=== PATIENT | male | born 1955 | race Caucasian/White ===

== ENCOUNTER → 2020-09-12 | Outpatient (CLI) | payer MEDICARE ==
[~2020-09-12] MED LIST: CELE50CA PO; IBP600T1 PO; OXYC-12 PO
--- NOTE | 2020-09-12 13:20 | Diagnostic Imaging Report ---
PROCEDURE: CT urinary tract, rule out kidney stone. TECHNIQUE: Multiple contiguous axial images were obtained through the abdomen and pelvis without the use of intravenous contrast. Auto Exposure Controls were utilized during the CT exam to meet ALARA standards for radiation dose reduction. INDICATION: Right flank pain and hematuria. COMPARISON: No previous study is available at this time for comparison. FINDINGS: The unenhanced images of the liver and spleen reveal no focal lesion. Note is made of calcification in the lung bases, possibly related to granulomatous residual or other insult. There is no evidence of gallbladder or biliary ductal dilatation. No pancreatic, adrenal gland, or splenic abnormality is seen. There are multiple low-density nodules in the renal cortices bilaterally measuring up to approximately 1.5 cm in size. There is also dense calcification within the mid and lower pole calyces of the left kidney. Additional scattered right renal calyceal calcifications are identified; however, there is no evidence of hydronephrosis. No ureteric stone or dilatation is identified. The unopacified images of the bladder reveal no calculus. There is no evidence of free fluid within the abdomen or pelvis. There is evidence of old pelvic trauma with fractures, particularly on the left, with fusion across the right sacroiliac joint. IMPRESSION: Bilateral nephrolithiasis; however, no obstructive uropathy is identified. Old pelvic trauma, particularly on the left, with fusion across the right sacroiliac joint. Dictated by: Dictated on workstation # [id number]
== END ==
LOC: RAD 13:15
PROVIDERS: ATTEND Nurse Practitioner Family
DX: N20.0 Calculus of kidney (principal)
CPT/HCPCS: 74176

== ENCOUNTER 2020-09-20 05:36 | Outpatient (CLI) | payer MEDICARE ==
[~2020-09-20] VITALS: Ht 177.8 cm; Wt 74.9 kg
[2020-09-20] MEDS ORDERED: AMLO-250 PO (13:44)
[2020-09-20] MEDS ORDERED: FLUT9.9S NS (13:44)
[2020-09-20] MEDS ORDERED: OMEP40CA6 PO (13:44)
[2020-09-20] MEDS ORDERED: ALLO300T2 PO (13:44)
[2020-09-20] MEDS ORDERED: TIMO5DRO27 OP (13:44)
[2020-09-20] MEDS ORDERED: LISI20TA26 PO (13:44)
[2020-09-20] MEDS ORDERED: ATOR20TA66 PO (13:44)
== END 2020-09-20 13:51 | disposition home or self-care (01) ==
LOC: PREOP 05:36
PROVIDERS: ATTEND Urology
DX: Z01.818 Encounter for other preprocedural examination (principal)

== ENCOUNTER 2020-09-27 07:49 | Day surgery (SDC) | payer MEDICARE ==
[~2020-09-27] VITALS: Ht 177.8 cm; Wt 74.9 kg
[2020-09-27] VITALS (10 sets, daily range): BP systolic 96–131; BP diastolic 59–83
[~2020-09-27 07:49] MED LIST changes: +ALLO300T2 PO; +AMLO-250 PO; +ATOR20TA66 PO; +FLUT9.9S NS; +LISI20TA26 PO; +OMEP40CA6 PO; +TIMO5DRO27 OP
--- NOTE | 2020-09-27 07:59 | Progress Note-Pre Operative ---
Pre-Operative Progress Note H&P Reviewed The H&P was reviewed, patient examined and no changes noted. Date Seen by Provider: Sep 27, 2020 Time Seen by Provider: 07:59 Date H&P Reviewed: Sep 27, 2020 Time H&P Reviewed: 07:59 Pre-Operative Diagnosis: LT RENAL STONE REYES STOVER MD Sep 27, 2020 07:59
[2020-09-27] MEDS ORDERED: ceFAZolin INJECTION 1,000 MG in WATER (STERILE) FOR INJECTION 10 ML IV ONE (08:00)
[2020-09-27] MEDS ORDERED: LACTATED RINGERS 1,000 ML IV PRN (08:00)
--- NOTE | 2020-09-27 08:39 | Diagnostic Imaging Report ---
Supine abdomen at 819 hours. INDICATION: Preop ESWL, nephrolithiasis. FINDINGS: The CT abdomen/pelvis exam of 09/12/2020 noted bilateral nephrolithiasis. On this exam, nonobstructive calculi within the kidney seen previously are again evident and not significantly changed. There is much greater involvement of the left kidney by nephrolithiasis than the right. There is still no sign of obstructive calculus along the paths of the ureters. There is no abnormality of the abdomen identified otherwise. IMPRESSION: 1. There is bilateral nephrolithiasis. 2. ESWL is pending. Dictated by: Dictated on workstation # [id number]
[2020-09-27] MEDS ORDERED: MV-M1TAB37 PO (10:30)
[2020-09-27] MEDS ORDERED: KETOROLAC 30 MG/ML VIAL ONE (10:39)
[2020-09-27] MEDS ORDERED: proPOfol 200 MG/20 ML (DIPRIVAN) VIAL IV ONE (10:39)
[2020-09-27] MEDS ORDERED: FUROSEMIDE 40 MG/4 ML INJ (LASIX) ONE (10:39)
[2020-09-27] MEDS ORDERED: LIDOCAINE PF 2% 5 ML (XYLOCAINE) VIAL ONE (10:39)
[2020-09-27] MEDS ORDERED: ONDANSETRON 4 MG/2 ML (SDV) Z0FRAN ONE (10:39)
[2020-09-27] MEDS ORDERED: MIDAZOLAM 2 MG/2 ML (VERSED) VIAL ONE (10:40)
[2020-09-27] MEDS ORDERED: fentaNYL INJ 100 MCG/2 ML AMP ONE (10:40)
--- NOTE | 2020-09-27 10:59 | Progress Note-Post Operative ---
Post-Operative Progess Note Surgeon (s)/Vp Construction (s) Surgeon REYES STOVER MD Vp Construction: NONE Pre-Operative Diagnosis LT RENAL STONE Post-Operative Diagnosis SAME Procedure & Operative Findings Date of Procedure 09/27/20 Procedure Performed/Findings LT ESWL Anesthesia Type GENERAL Estimated Blood Loss Estimated blood loss (mL): NONE Specimens/Packing Specimens Removed NONE Packing: NONE REYES STOVER MD Sep 27, 2020 10:59
--- NOTE | 2020-09-27 11:02 | Discharge Inst-Urology ---
Discharge Inst-Urology Reconcile Patient Problems Problems Reviewed?: Yes Final Diagnosis LT RENAL STONES Patient Instructions/Follow Up Plan/Assessment/Instructions Please make appointment to been seen in office Tuesday 10/10, KUB prior to it. KUB on way home Post eswl instructions Increase oral fluids for 48 hours and then as needed. Diet and Activity as tolerated. If questions or concerns contact your physician Or seek help at emergency department. REYES STOVER MD Sep 27, 2020 11:02
[2020-09-27] MEDS ORDERED: SEVOFLURANE (ULTANE) 15 ML INHAL SOLN ONE (11:43)
[2020-09-27] MEDS ORDERED: MEPERIDINE (DEMEROL) INJ 50 MG/ML IVP ONE (11:45)
[2020-09-27] MEDS ORDERED: ONDANSETRON 4 MG/2 ML (SDV) Z0FRAN IVP PRN (11:45)
[2020-09-27] MEDS ORDERED: morphine INJ 10 MG/ML 1ML (SYR OR VIAL) IVP ONE (11:45)
--- NOTE | 2020-09-27 12:42 | Anesthesia-General Post-Op ---
General Patient Condition Mental Status/LOC: Same as Preop Cardiovascular: Satisfactory Nausea/Vomiting: Absent Respiratory: Satisfactory Pain: Controlled Complications: Absent Post Op Complications Complications None Follow Up Care/Instructions Patient Instructions None needed. Anesthesia/Patient Condition Patient Condition Patient is doing well, no complaints, stable vital signs, no apparent adverse anesthesia problems. No complications reported per nursing. REYNALDO GIFFORD CRNA Sep 27, 2020 12:42
[2020-09-27] MEDS ORDERED: KETO10TA PO (12:54)
[2020-09-27] MEDS ORDERED: TMSL.4C PO (12:54)
[2020-09-27] MEDS ORDERED: NITR-65 PO (12:54)
--- NOTE | 2020-09-27 14:02 | OPERATIVE REPORT ---
DATE OF SERVICE: 09/27/2020 PREOPERATIVE DIAGNOSIS: Left renal stones. POSTOPERATIVE DIAGNOSIS: Left renal stones. OPERATION PERFORMED: Left ESWL. SURGEON: Ilya Stover MD ANESTHESIA: General. COMPLICATIONS: None. DESCRIPTION OF PROCEDURE: Under satisfactory general anesthesia, the patient supine on the ESWL table, the big stone fragment was localized. Shocks were delivered at kV of 6. Total of 3000 shocks were delivered. There was good fragmentation of the stones, probably needing a second ESWL in 2 weeks. The patient received 40 mg of Lasix and 30 mg of Toradol IV at the end of the procedure. He tolerated the procedure and anesthesia well and was sent to recovery room in stable condition. Job ID: [id number] DocumentID: [id number] Dictated Date: 09/27/2020 11:29:32 Instrument Maker And Repairer Date: 09/27/2020 14:02:25 Dictated By: ILYA STOVER MD
== END 2020-09-27 13:20 | disposition home or self-care (01) ==
LOC: SDC 07:49
PROVIDERS: ATTEND Urology
DX: N20.0 Calculus of kidney (principal); I10 Essential (primary) hypertension; K21.9 Gastro-esophageal reflux disease without esophagitis; Z79.899 Other long term (current) drug therapy
CPT/HCPCS: 74018; 87081

== ENCOUNTER 2020-10-04 05:33 | Outpatient (CLI) | payer MEDICARE ==
[~2020-10-04 05:33] MED LIST changes: +KETO10TA PO; +MV-M1TAB37 PO; +NITR-65 PO; +TMSL.4C PO
[2020-10-11] MEDS ORDERED: TMSL.4C PO ×2 (12:03)
[2020-10-11] MEDS ORDERED: KETO10TA PO ×2 (12:03)
[2020-10-11] MEDS ORDERED: NITR-65 PO ×2 (12:03)
== END 2020-10-10 14:55 | disposition home or self-care (01) ==
LOC: PREOP 05:33
PROVIDERS: ATTEND Urology
DX: Z01.818 Encounter for other preprocedural examination (principal)

== ENCOUNTER → 2020-10-07 | Outpatient (CLI) | payer MEDICARE ==
--- NOTE | 2020-10-07 10:48 | Diagnostic Imaging Report ---
Supine abdomen at 1007h. INDICATION: Nephrolithiasis The previous exam of 09/27/2020 noted a number of nonobstructive calculi overlying the left kidney as well as a few calcific densities overlying the right kidney. Those findings are again evident and do not seem to have changed significantly. No new abnormality has developed otherwise. IMPRESSION: The bilateral nephrolithiasis seen previously is again evident and no different. The overall appearance of the abdomen and pelvis is otherwise stable. Dictated by: Dictated on workstation # [id number]
== END ==
LOC: RAD 09:33
PROVIDERS: ATTEND Urology
DX: N20.0 Calculus of kidney (principal)
CPT/HCPCS: 74018

== ENCOUNTER 2020-10-11 06:44 | Day surgery (SDC) | payer MEDICARE ==
[2020-10-11] VITALS (10 sets, daily range): BP systolic 107–134; BP diastolic 67–86
[~2020-10-11] VITALS: Ht 177.8 cm; Wt 74.9 kg
[2020-10-11] MEDS ORDERED: cefTRIAXone 1,000 MG in WATER (STERILE) FOR INJECTION 10 ML IV ONE (07:15)
--- NOTE | 2020-10-11 07:59 | Progress Note-Pre Operative ---
Pre-Operative Progress Note H&P Reviewed The H&P was reviewed, patient examined and no changes noted. Date Seen by Provider: Oct 11, 2020 Time Seen by Provider: 07:59 Date H&P Reviewed: Oct 11, 2020 Time H&P Reviewed: 07:59 Pre-Operative Diagnosis: LT RENAL STONES REYES STOVER MD Oct 11, 2020 07:59
[2020-10-11] MEDS: LACTATED RINGERS 1,000 ML IV PRN ×2 (08:04→10:25)
--- NOTE | 2020-10-11 08:31 | Progress Note-Post Operative ---
Post-Operative Progess Note Surgeon (s)/Shuttle Route Vehicle Operator (s) Surgeon REYES STOVER MD Shuttle Route Vehicle Operator: NONE Pre-Operative Diagnosis LT RENAL STONES Post-Operative Diagnosis SAME Procedure & Operative Findings Date of Procedure 10/11/20 Procedure Performed/Findings LT ESWL Anesthesia Type GENERAL Estimated Blood Loss Estimated blood loss (mL): NONE Specimens/Packing Specimens Removed NONE Packing: NONE REYES STOVER MD Oct 11, 2020 08:31
--- NOTE | 2020-10-11 08:33 | Discharge Inst-Urology ---
Discharge Inst-Urology Reconcile Patient Problems Problems Reviewed?: Yes Final Diagnosis LT RENAL STONES Patient Instructions/Follow Up Plan/Assessment/Instructions Please make appointment to been seen in office in 2 weeks. KUB prior to it KUB on way home Post ESWL instructions Increase oral fluids for 48 hours and then as needed. Diet and Activity as tolerated. If questions or concerns contact your physician Or seek help at emergency department. REYES STOVER MD Oct 11, 2020 08:33
--- NOTE | 2020-10-11 08:40 | Diagnostic Imaging Report ---
Indication: Nephrolithiasis. Compared with exam 10/07/2020 Findings: There are multiple left renal calculi unchanged radiographically. There is probable faint calculi at the mid to upper pole of the right kidney unchanged. Pelvic calcifications believe phleboliths unchanged however on the left could obscure a distal ureteral stone. Some contrast was within left colonic diverticuli chronic. Impression: Nephrolithiasis greater left, radiographically unchanged. Dictated by: Dictated on workstation # [id number]
[2020-10-11] MEDS ORDERED: fentaNYL INJ 100 MCG/2 ML AMP ONE (09:41)
[2020-10-11] MEDS ORDERED: ONDANSETRON 4 MG/2 ML (SDV) Z0FRAN ONE (09:41)
[2020-10-11] MEDS ORDERED: MIDAZOLAM 2 MG/2 ML (VERSED) VIAL ONE (09:41)
[2020-10-11] MEDS ORDERED: proPOfol 200 MG/20 ML (DIPRIVAN) VIAL IV ONE (09:41)
[2020-10-11] MEDS ORDERED: LIDOCAINE PF 2% 5 ML (XYLOCAINE) VIAL ONE (09:41)
[2020-10-11] MEDS ORDERED: KETOROLAC 30 MG/ML VIAL ONE (10:00)
[2020-10-11] MEDS ORDERED: FUROSEMIDE 40 MG/4 ML INJ (LASIX) ONE (10:00)
[2020-10-11] MEDS ORDERED: PHENYLEPHRINE 100 MCG/ML 10 ML (ANESTHESIA) SYR ONE (10:05)
[2020-10-11] MEDS ORDERED: ONDANSETRON 4 MG/2 ML (SDV) Z0FRAN IVP PRN (10:45)
[2020-10-11] MEDS ORDERED: KETO10TA PO ×2 (12:03)
[2020-10-11] MEDS ORDERED: NITR-65 PO ×2 (12:03)
[2020-10-11] MEDS ORDERED: TMSL.4C PO ×2 (12:03)
--- NOTE | 2020-10-11 12:41 | Diagnostic Imaging Report ---
INDICATION: Postop kidney stones COMPARISON: 10/11/20 FINDINGS: Single view the abdomen demonstrates kidney stones in the left kidney. There is no unexpected radiopaque foreign body. IMPRESSION: No foreign body seen. Dictated by: Dictated on workstation # [id number]
--- NOTE | 2020-10-11 13:51 | OPERATIVE REPORT ---
DATE OF SERVICE: 10/11/2020 PREOPERATIVE DIAGNOSIS: Left renal stones. POSTOPERATIVE DIAGNOSIS: Left renal stones. OPERATION PERFORMED: Left ESWL. SURGEON: Ilya Stover MD. ANESTHESIA: General. COMPLICATIONS: None. DESCRIPTION OF PROCEDURE: Under satisfactory general anesthesia, the patient in supine position on the ESWL table, the left renal stones were localized. Shocks were delivered at a kV of 6, a total of 3000 shocks fragmented well the stones. The patient received 40 mg of Lasix and 30 mg of Toradol IV at the end of the procedure. He tolerated the procedure and anesthesia well and was sent to recovery room in a stable condition. Job ID: [id number] DocumentID: [id number] Dictated Date: 10/11/2020 10:17:06 Software Test Developer Date: 10/11/2020 13:50:18 Dictated By: ILYA STOVER MD
--- NOTE | 2020-10-11 13:59 | Anesthesia-General Post-Op ---
General Patient Condition Mental Status/LOC: Same as Preop Cardiovascular: Satisfactory Nausea/Vomiting: Absent Respiratory: Satisfactory Pain: Controlled Complications: Absent Post Op Complications Complications None Follow Up Care/Instructions Patient Instructions None needed. Anesthesia/Patient Condition Patient Condition Patient is doing well, no complaints, stable vital signs, no apparent adverse anesthesia problems. No complications reported per nursing. D/C home per [facility] [place] Criteria: Yes MCKINLEY MCDONOUGH CRNA Oct 11, 2020 13:59
== END 2020-10-11 12:53 | disposition home or self-care (01) ==
LOC: SDC 06:44
PROVIDERS: ATTEND Urology
DX: N20.0 Calculus of kidney (principal); I10 Essential (primary) hypertension; K21.9 Gastro-esophageal reflux disease without esophagitis; Z88.5 Allergy status to narcotic agent; K44.9 Diaphragmatic hernia without obstruction or gangrene; K59.00 Constipation, unspecified; K29.70 Gastritis, unspecified, without bleeding; M10.9 Gout, unspecified; Z86.010 Personal history of colon polyps; Z79.899 Other long term (current) drug therapy; Z11.2 Encounter for screening for other bacterial diseases
CPT/HCPCS: 74018; 87081

== ENCOUNTER → 2020-10-25 | Outpatient (CLI) | payer MEDICARE ==
--- NOTE | 2020-10-25 16:35 | Diagnostic Imaging Report ---
INDICATION: Ureteral stone, status post lithotripsy. TIME OF EXAM: 2:52 PM COMPARISON is made with prior radiograph from 10/11/2020. Numerous calculi overlie the upper mid and lower pole of the left kidney. There are also calculi overlying the right renal shadow. There appears to be some fragmentation of a staghorn calculus in the lower pole left kidney. No definite calculi along the course of the ureters are seen. The bowel gas pattern is unremarkable. IMPRESSION: Bilateral nephrolithiasis. There is fragmentation of a staghorn calculus in the lower pole left kidney. Dictated by: Dictated on workstation # [id number]
== END ==
LOC: RAD 14:32
PROVIDERS: ATTEND Urology
DX: N20.0 Calculus of kidney (principal); Z98.890 Other specified postprocedural states
CPT/HCPCS: 74018

== ENCOUNTER → 2020-11-07 | Outpatient (CLI) | payer MEDICARE ==
--- NOTE | 2020-11-07 16:09 | Diagnostic Imaging Report ---
INDICATION: Nephrolithiasis. COMPARISON: 10/25/2020. FINDINGS: There are somewhat amorphous calcifications overlying the left kidney. There are also some questionable stones in the right kidney. There are degenerative changes in the spine. IMPRESSION: Relatively unchanged bilateral nephrolithiasis, left greater than right. Dictated by: Dictated on workstation # [id number]
== END ==
LOC: RAD 14:17
PROVIDERS: ATTEND Urology
DX: N20.0 Calculus of kidney (principal); Z98.890 Other specified postprocedural states
CPT/HCPCS: 74018

== ENCOUNTER 2021-12-10 10:09 | Inpatient (IN) | payer MEDICARE ==
[~2021-12-10] VITALS: Ht 167.7 cm; Wt 73.1 kg
--- NOTE | 2021-12-10 10:59 | ED GI ---
General Chief Complaint: Abdominal/GI Problems Stated Complaint: SYNCOPE Nursing Triage Note: PT TO RM 3 [facility] W C/O N/V/D SX THIS AM. PT REPORTS HE PASSED OUT WHILE ON TOILET THIS AM, UNSURE IF HE HIT HIS HEAD. TENDERNESS ON UPPER BACK, DENIES NECK PAIN. PT DENIES SOA, SPO2 87% RA UPON ARRIVAL. PT A&OX4. Source of Information: Patient, Family () Exam Limitations: No Limitations History of Present Illness Date Seen by Provider: Dec 10, 2021 Time Seen by Provider: 10:40 Initial Comments Patient is a 66-year-old male who presents to the emergency room today with a chief complaint of nausea vomiting and diarrhea. His states that he had a syncopal episode in the bathroom this morning. Patient states that he has been fighting an episode of gout, he took some gout medication for treatment last night. States he slept well but this morning had 4 episodes of diarrhea that were nonblack nonbloody. He was in the bathroom having an episode of nausea and vomiting and could not really get up from the toilet. This is the point at which his thinks that she heard him fall back onto the toilet. He was actually coming off the toilet when she went in and was poorly responsive for 2 or 3 minutes. She states she was able to arouse him and walk behind him into the living room. He complains of a little epigastric discomfort. He has chronic neck pain. He has a history of hypertension, hypercholesterolemia. Not a diabetic. He denies any recent illnesses has been feeling well until this morning. He has never been a smoker. He does not wear oxygen at home or use breathing treatments. 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 On my arrival into the room Mr. Prado appears to feel unwell. He is slightly pale, not tachycardic. Oxygen saturations are 85% on 2 L per nasal cannula. Good plethysmography. Blood pressure is low at 85 systolic. This has been consistent since being hooked up to telemetry. I increased his oxygen up to 5 L per nasal cannula which kept him at 85 to 87%. I then switched him to a simple facemask at 10 L. He is exhibiting no increased work of breathing or respiratory distress but does have a significant amount of crackles to the right lung iglesias. Suspicion for aspiration pneumonia. All other review of systems reviewed and negative except as stated Timing/Duration: 1-3 Hours Severity/Quality: Severe Associated Symptoms: Nausea/Vomiting, Syncope, Weakness Allergies and Home Medications Allergies Coded Allergies: codeine (Unverified Adverse Reaction, Mild, HEADACHE, 09/27/20) Patient Home Medication List Home Medication List Reviewed: Yes Allopurinol (Allopurinol) 300 Mg Tablet, 200 MG PO DAILY Prescribed by: BILLY SÁNCHEZ on 12/10/21 1445 Last Action: New Order Amlodipine Besylate (Amlodipine Besylate) 5 Mg Tablet, 5 MG PO DAILY, (Reported) Entered as Reported by: JOSEFINA HERRERA on 09/20/201343 Last Action: Reviewed Atorvastatin Calcium (Atorvastatin Calcium) 20 Mg Tablet, 20 MG PO DAILY, (Reported) Entered as Reported by: JOSEFINA HERRERA on 09/20/201343 Last Action: Reviewed Duloxetine HCl (Duloxetine HCl) 60 Mg Capsule.dr, 60 MG PO DAILY Prescribed by: BILLY SÁNCHEZ on 12/10/21 1447 Last Action: New Order Lisinopril (Lisinopril) 20 Mg Tablet, 20 MG PO DAILY, (Reported) Entered as Reported by: JOSEFINA HERRERA on 09/20/201343 Last Action: Reviewed Omeprazole (Omeprazole) 40 Mg Capsule.dr, 40 MG PO DAILY, (Reported) Entered as Reported by: JOSEFINA HERRERA on 09/20/201343 Last Action: Reviewed Timolol (Betimol) 5 Ml Drops, 5 ML OP DAILY, (Reported) Entered as Reported by: JOSEFINA HERRERA on 09/20/201343 Last Action: Reviewed Discontinued Medications Fluticasone Propionate (Flonase Allergy Relief) 9.9 Ml [place].susp, 2 SPRAY NS DAILY, (Reported) Discontinued Reason: No Longer Taking Entered as Reported by: JOSEFINA HERRERA on 09/20/201343 Last Action: Discontinued Ketorolac Tromethamine (Ketorolac Tromethamine) 10 Mg Tablet, 10 MG PO Q6H Discontinued Reason: No Longer Taking Prescribed by: DANITA CHILDERS on 10/11/20 1203 Last Action: Discontinued Mv-Mn/FA/Lycopene/Lut/Hb#178 (Andrew Multi For Men Tablet) 1 Each Tablet, 1 EACH PO DAILY, (Reported) Discontinued Reason: No Longer Taking Entered as Reported by: ALEJANDRA MILLIGAN on 09/27/20 1030 Last Action: Discontinued Nitrofurantoin Monohyd/M-Cryst (Macrobid 100 mg Capsule) 100 Mg Capsule, 1 TAB PO BID Discontinued Reason: No Longer Taking Prescribed by: DANITA CHILDERS on 10/11/20 1203 Last Action: Discontinued Tamsulosin HCl (Flomax) 0.4 Mg Cap, 0.4 MG PO DAILY Discontinued Reason: No Longer Taking Prescribed by: ALEJANDRA MILLIGAN on 09/27/20 1254 Last Action: Discontinued Tamsulosin HCl (Flomax) 0.4 Mg Cap, 0.4 MG PO DAILY Discontinued Reason: No Longer Taking Prescribed by: DANITA CHILDERS on 10/11/20 120 Last Action: Discontinued Review of Systems Review of Systems Constitutional: see HPI, malaise, weakness EENTM: No Symptoms Reported Respiratory: Cough ("tickle" in his throat the last 2-3 days) Cardiovascular: No Symptoms Reported Gastrointestinal: Diarrhea, Nausea, Vomiting Genitourinary: No Symptoms Reported Musculoskeletal: neck pain (chronic (has steroid injections in the neck)) Psychiatric/Neurological: No Symptoms Reported All Other Systems Reviewed Negative Unless Noted: Yes Past Uaxwdqa-Magjgc-Obojli Hx Patient Social History Tobacco Use?: No Use of E-Cig and/or Vaping dev: No Substance use?: No Alcohol Use?: No Immunizations Up To Date Influenza Vaccine Up-to-Date: Yes; Up-to-Date First/Initial COVID19 Vaccinat: NONE Second COVID19 Vaccination [place]rbano: NONE Third COVID19 Vaccination Date: NONE COVID19 Vaccine Referral Nurse: NONE Seasonal Allergies Seasonal Allergies: Yes (OTC FLONASE) Past Medical History Surgeries: Yes Adenoidectomy, Appendectomy, Tonsillectomy Respiratory: No High Cholesterol, Hypertension Neurological: No Genitourinary: Yes Kidney Stones Gastrointestinal: Yes Gastroesophageal Reflux, Polyps, Hiatal Hernia, Irritable Bowel Musculoskeletal: Yes Arthritis, Gout Endocrine: No HEENT: Yes (SINUS DRAINAGE) Glaucoma Hearing Impairment: Hard of Hearing Cancer: No Psychosocial: Yes Anxiety Integumentary: No Blood Disorders: No Physical Exam Vital Signs Vital Signs - First Documented 12/10/21 10:11 Temp 36.7 Pulse 80 Resp 20 B/P (MAP) 94/60 (71) Pulse Ox 91 O2 Delivery Nasal Cannula O2 Flow Rate 3.00 Capillary Refill : Less Than 3 Seconds Height/Weight/BMI Height: '" Weight: lbs. oz. 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, no motor/sensory deficits, alert, normal mood/affect ((flat affect)), oriented x 3 Skin: normal color, warm/dry, other (no swelling, erythema or pain in the right elbow at this time) Focused Exam Sepsis Stage: Sepsis Possible Source: Pulmonary Lactate Level 12/10/21 11:08: Lactic Acid Level 1.54 Time of Focused Exam: 12:00 Respiratory: No Accessory Muscle Use, No Respiratory Distress, Crackles (right lung) Cardiovascular: Regular Rate, Rhythm, Normal Peripheral Pulses, Tachycardia Capillary Refill: Less Than 3 Seconds Peripheral Pulses: 1+ Radial Pulses (R), 1+ Radial Pulses (L) Skin: normal color, cool Lactic Acid Level Laboratory Tests Test 12/10/21 11:08 Lactic Acid Level 1.54 MMOL/L (0.50-2.00) Within 3hrs of presentation: Admin fluids, Admin ABX, Blood cultures prior to ABX's, Focus exam, Lactate level Progress/Results/Core Measures Results/Orders Lab Results Laboratory Tests Test 12/10/21 10:15 12/10/21 11:08 12/10/21 11:40 12/10/21 12:00 Range/Units White Blood Count 15.6 H 4.3-11.0 10^3/uL Red Blood Count 5.34 4.30-5.52 10^6/uL Hemoglobin 15.6 13.3-17.7 g/dL Hematocrit 46 40-54 % Mean Corpuscular Volume 85 80-99 fL Mean Corpuscular Hemoglobin 29 25-34 pg Mean Corpuscular Hemoglobin Concent 34 32-36 g/dL Red Cell Distribution Width 13.8 10.0-14.5 % Platelet Count 357 130-400 10^3/uL Mean Platelet Volume 9.7 9.0-12.2 fL Immature Granulocyte % (Auto) 1 % Neutrophils (%) (Auto) 81 H 42-75 % Lymphocytes (%) (Auto) 12 12-44 % Monocytes (%) (Auto) 5 0-12 % Eosinophils (%) (Auto) 2 0-10 % Basophils (%) (Auto) 0 0-10 % Neutrophils # (Auto) 12.6 H 1.8-7.8 10^3/uL Lymphocytes # (Auto) 1.8 1.0-4.0 10^3/uL Monocytes # (Auto) 0.8 0.0-1.0 10^3/uL Eosinophils # (Auto) 0.3 0.0-0.3 10^3/uL Basophils # (Auto) 0.1 0.0-0.1 10^3/uL Immature Granulocyte # (Auto) 0.1 0.0-0.1 10^3/uL Neutrophils % (Manual) 73 % Lymphocytes % (Manual) 13 % Monocytes % (Manual) 6 % Eosinophils % (Manual) 4 % Band Neutrophils 4 % Blood Morphology Comment NORMAL Sodium Level 141 135-145 MMOL/L Potassium Level 3.8 3.6-5.0 MMOL/L Chloride Level 107 98-107 MMOL/L Carbon Dioxide Level 21 21-32 MMOL/L Anion Gap 13 5-14 MMOL/L Blood Urea Nitrogen 16 7-18 MG/DL Creatinine 1.34 H 0.60-1.30 MG/DL Estimat Glomerular Filtration Rate 58 BUN/Creatinine Ratio 12 Glucose Level 204 H 70-105 MG/DL Calcium Level 10.0 8.5-10.1 MG/DL Corrected Calcium 10.1 8.5-10.1 MG/DL Total Bilirubin 0.6 0.1-1.0 MG/DL Aspartate Amino Transf (AST/SGOT) 23 5-34 U/L Alanine Aminotransferase (ALT/SGPT) 16 0-55 U/L Alkaline Phosphatase 151 H 40-136 U/L Troponin I < 0.028 <0.028 NG/ML C-Reactive Protein High Sensitivity 3.61 H 0.00-0.50 MG/DL Total Protein 7.6 6.4-8.2 GM/DL Albumin 3.9 3.2-4.5 GM/DL Procalcitonin 0.06 <0.10 NG/ML Lactic Acid Level 1.54 0.50-2.00 MMOL/L Prothrombin Time 14.4 12.2-14.7 SEC INR Comment 1.1 0.8-1.4 Activated Partial Thromboplast Time 29 24-35 SEC D-Dimer 5.69 H 0.00-0.49 UG/ML Test 12/10/21 12:15 Range/Units Influenza Type A (RT-PCR) Not Detected Not Detecte Influenza Type B (RT-PCR) Not Detected Not Detecte SARS-CoV-2 RNA (RT-PCR) Not Detected Not Detecte My Orders Orders - AZAR DUKE MD Cbc With Automated Diff (12/10/21 10:51) Comprehensive Metabolic Panel (12/10/21 10:51) Blood Culture (12/10/21 10:51) Sputum Culture (12/10/21 10:51) Urinalysis (12/10/21 10:51) Urine Culture (12/10/21 10:51) Protime With Inr (12/10/21 10:51) Partial Thromboplastin Time (12/10/21 10:51) Chest 1 View, Ap/Pa Only (12/10/21 10:51) Ed Iv/Invasive Line Start (12/10/21 10:51) Ed Iv/Invasive Line Start (12/10/21 10:51) Vital Signs Adult Sepsis Patie Q15M (12/10/21 10:51) O2 (12/10/21 10:51) Remove Rings In Anticipation O (12/10/21 10:51) Lactic Acid Analyzer (12/10/21 10:51) Hs C Reactive Protein (12/10/21 10:51) Procalcitonin (Pct) (12/10/21 10:51) Covid 19 Inhouse Test (12/10/21 10:51) Influenza A And B By Pcr (12/10/21 10:51) Isolation Central Supply Req (12/10/21 10:51) Communication For Respiratory (12/10/21 10:51) Ns Iv 1000 Ml (Sodium Chloride 0.9%) (12/10/21 11:00) Ondansetron Injection (Zofran Injectio (12/10/21 11:00) Manual Differential (12/10/21 10:15) Piperacillin Sodium/Tazobactam (Zosyn Vi (12/10/21 12:15) Ed Admission (Communication) (12/10/21 12:21) Medications Given in ED Vital Signs/I&O 12/10/21 10:11 Temp 36.7 Pulse 80 Resp 20 B/P (MAP) 94/60 (71) Pulse Ox 91 O2 Delivery Nasal Cannula O2 Flow Rate 3.00 12/11/21 00:00 Intake Total 1000 ml Balance 1000 ml Blood Pressure Mean: 71 Admisison Planning May Need Admission (Planning): 12:08 Progress Progress Note : Time: 12:05 Progress Note Patient presented hypotensive with blood pressures 85 systolic and room air oxygen saturations in the low 80s. Supplemental oxygen was provided up to 10 L/min via simple facemask. He has been fluid responsive getting normal saline with a blood pressure of 120 systolic at this time. He is chilling currently. Complains of feeling "cold" still alert. Looks ill. Antibiotics ordered. Still on 10L via simple facemask with sats 93-96%. Lactic WNL. GUALBERTO Herrera stated he just vomited again. [address] Sullivan - will put in ICU - HR 107, BP 120 Systolic Diagnostic Imaging Diagonstic Imaging: Xray Plain Films/CT/US/NM/MRI: chest Comments [facility]. [place], [place] NAME: PATRICIA PRADO [facility] REC#: [id number] PT STATUS: REG ER : 1955 PHYSICIAN: AZAR DUKE MD ADMIT DATE: 12/10/21/ER Draft Date of Exam:12/10/21 CHEST 1 VIEW, AP/PA ONLY CHEST 1 VIEW, AP/PA ONLY Indication: Weakness with vomiting and diarrhea Comparison: None available. Findings: Ill-defined right infrahilar opacities. No pleural effusion or pneumothorax. Normal cardiomediastinal silhouette. Impression: 1. Right basilar opacities may be on the basis of pneumonia. Atelectasis could also give this appearance. Dictated on workstation # [id number] Dict: 12/10/21 1121 Trans: 12/10/21 1123 CVB [id number] Interpreted by: SAE FLOWER MD Electronically signed by: Critical Care Note Critical Care Start Time: 10:40 Stop Time: 12:01 Total Time (minutes) 40 minutes critical care time in the evaluation and management of this 66-year-old with sepsis. Time includes initial evaluation and management of hypoxia, hypotension. Review of the medical record, review and interpretation of labs and imaging, discussion with admitting provider and family Departure Communication (Admissions) Time/Spoke to Admitting Phy: 12:[address] Sullivan - will put in que'd orders Impression Primary Impression: Sepsis Qualified Codes: A41.9 - Sepsis, unspecified organism; R65.20 - Severe sepsis without septic shock; J96.01 - Acute respiratory failure with hypoxia Additional Impressions: Pneumonia Qualified Codes: J18.9 - Pneumonia, unspecified organism Hypoxia Disposition: ADMITTED INPATIENT Condition: Critical Admissions Decision to Admit Reason: Admit from ER (General) Decision to Admit/Date: Dec 10, 2021 Time/Decision to Admit Time: 12:20 Departure-Patient Inst. Referrals: [facility] [place] (PCP) Primary Care Physician LOGAN PADILLA APRN (Family) Primary Care Physician Scripts Duloxetine HCl (Duloxetine HCl) 60 Mg Capsule.dr 60 MG PO DAILY, #30 CAP Prov: ILIA SULLIVAN DO 12/10/21 Allopurinol (Allopurinol) 300 Mg Tablet 200 MG PO DAILY, #30 TAB Prov: ILIA SULLIVAN DO 12/10/21 Copy Copies To 1: TAWANA BUI KATHRYN M MD Dec 10, 2021 10:59
[2021-12-10] MEDS ORDERED: ONDANSETRON 4 MG/2 ML (SDV) Z0FRAN IVP ONE (11:00)
[2021-12-10] MEDS: NS IV 1000 ML 1,000 ML IV SCH ×4 (11:05→23:30)
[2021-12-10 11:08] LABS: BASOPHILS # (AUTO) 0.1 10^3/uL (0.0-0.1); BASOPHILS % (AUTO) 0 % (0-10); EOSINOPHILS # (AUTO) 0.3 10^3/uL (0.0-0.3); EOSINOPHILS % (AUTO) 2 % (0-10); HEMATOCRIT 46 % (40-54); HEMOGLOBIN 15.6 g/dL (13.3-17.7); LYMPHOCYTES # (AUTO) 1.8 10^3/uL (1.0-4.0); LYMPHOCYTES % (AUTO) 12 % (12-44); MEAN CORPUSCULAR HEMOGLOBIN 29 pg (25-34); MEAN CORPUSCULAR HGB CONC 34 g/dL (32-36); MEAN CORPUSCULAR VOLUME 85 fL (80-99); MEAN PLATELET VOLUME 9.7 fL (9.0-12.2); MONOCYTES # (AUTO) 0.8 10^3/uL (0.0-1.0); MONOCYTES % (AUTO) 5 % (0-12); NEUTROPHILS # (AUTO) 12.6 10^3/uL (1.8-7.8); NEUTROPHILS % (AUTO) 81 % (42-75); PLATELET COUNT 357 10^3/uL (130-400); WHITE BLOOD COUNT 15.6 10^3/uL (4.3-11.0)
[2021-12-10 11:12] LABS: ALBUMIN 3.9 GM/DL (3.2-4.5); POTASSIUM 3.8 MMOL/L (3.6-5.0)
[2021-12-10 11:15] LABS: TOTAL PROTEIN 7.6 GM/DL (6.4-8.2)
[2021-12-10 11:16] LABS: BILIRUBIN,TOTAL 0.6 MG/DL (0.1-1.0)
[2021-12-10 11:18] LABS: CREATININE SERUM 1.34 MG/DL (0.60-1.30)
--- NOTE | 2021-12-10 11:23 | Diagnostic Imaging Report ---
CHEST 1 VIEW, AP/PA ONLY Indication: Weakness with vomiting and diarrhea Comparison: None available. Findings: Ill-defined right infrahilar opacities. No pleural effusion or pneumothorax. Normal cardiomediastinal silhouette. Impression: 1. Right basilar opacities may be on the basis of pneumonia. Atelectasis could also give this appearance. Dictated by: Dictated on workstation # [id number]
[2021-12-10 11:31] LABS: BAND NEUTROPHILS 4 %; EOSINOPHILS % (MANUAL) 4 %; LYMPHOCYTES % (MANUAL) 13 %; MONOCYTES % (MANUAL) 6 %; NEUTROPHILS % (MANUAL) 73 %
[2021-12-10 11:32] LABS: RBC MORPH NORMAL
[2021-12-10 11:57] LABS: INR 1.1 (0.8-1.4); PROTHROMBIN TIME PATIENT 14.4 SEC (12.2-14.7)
[2021-12-10] MEDS ORDERED: PIPERACILLIN SODIUM/TAZOBACTAM 4.5 GM in NS (IVPB) 100 ML IV ONE (12:15)
[2021-12-10 14:02] VITALS: BP 110/77
--- NOTE | 2021-12-10 14:18 | History & Physical-Hospitalist ---
History of Present Illness HPI/Chief Complaint Chief complaint: Hypoxia with presumed aspiration pneumonia HPI: This is a 66-year-old male history of gout and hypertension who presented to the ER after syncopal episode at home found to be hypoxic and hypotensive req uiring IV fluids and IV antibiotics for presumed aspiration pneumonia. I did order a D-dimer after ER work-up was complete and it is elevated so I will obtain a stat CT angiogram of the chest to rule out PE and my suspicion is so high I will increase his Lovenox to therapeutic dose. Patient is chilling and appears to be very ill. Source: patient, family Exam Limitations: clinical condition Date Seen 12/10/21 Time Seen by a Provider: 13:00 Attending Physician [place] PCP Admitting Physician: Adele Bella DO Attending Physician: Adele Bella DO Referring Physician Date of Admission Dec 10, 2021 at 12:22 Home Medications & Allergies Home Medications Reviewed patient Home Medication Reconciliation performed by pharmacy medication reconciliations library information technician and/or nursing. Patients Allergies have been reviewed. Allergies Allergies Coded Allergies codeine (Unverified Adverse Reaction, Mild, HEADACHE, 09/27/20) Past Jmglzhx-Qcrtye-Zmfuqq Hx Patient Social History Marrital Status: Employed/Student: retired Tobacco Use?: No Smoking Status: Current Everyday Smoker Use of E-Cig and/or Vaping dev: No Substance use?: No Alcohol Use?: No Pt feels they are or have been: No Immunizations Up To Date First/Initial COVID19 Vaccinat: NONE Second COVID19 Vaccination Urb[place]: NONE Seasonal Allergies Seasonal Allergies: Yes (OTC FLONASE) Current Status Advance Directives: No Communicates: Verbally Primary Language: Venezuelan Preferred Spoken Language: Venezuelan Is interpretation needed?: No Sensory deficits: Hearing impairment Implanted or Applied Medical D: None Past Medical History Surgeries: Adenoidectomy, Appendectomy, Tonsillectomy High Cholesterol, Hypertension Kidney Stones Gastroesophageal Reflux, Polyps, Hiatal Hernia, Irritable Bowel Arthritis, Gout Glaucoma Hearing Impairment: Hard of Hearing Anxiety Blood Disorders: No Review of Systems Constitutional: see HPI, malaise, weakness EENTM: no symptoms reported Respiratory: dyspnea on exertion, short of breath Cardiovascular: no symptoms reported Gastrointestinal: no symptoms reported Genitourinary: no symptoms reported Musculoskeletal: no symptoms reported Skin: no symptoms reported Psychiatric/Neurological: No Symptoms Reported All Other Systems Reviewed Negative Unless Noted: Yes Physical Exam Physical Exam Vital Signs Vital Signs - First Documented 12/10/21 12/10/21 10:11 16:24 Temp 36.7 Pulse 80 Resp 20 B/P (MAP) 94/60 (71) Pulse Ox 91 O2 Delivery Nasal Cannula O2 Flow Rate 3.00 FiO2 32 Capillary Refill : Less Than 3 Seconds Height, Weight, BMI Height: '" Weight: lbs. oz. kg; 25.35 BMI Method:Stated General Appearance: Anxious, Chronically ill, Moderate Distress, Other (ashen) Eyes: Right Eye Normal Inspection, Right Eye PERRL HEENT: PERRL/EOMI, Normal ENT Inspection, Pharynx Normal, Moist Mucous Membranes Neck: Full Range of Motion, Normal Inspection, Non Tender Respiratory: Chest Non Tender, Lungs Clear, No Accessory Muscle Use, No Respiratory Distress, Decreased Breath Sounds Cardiovascular: Regular Rate, Rhythm, No Edema, No Gallop, No JVD, No Murmur, Normal Peripheral Pulses Gastrointestinal: Normal Bowel Sounds, No Organomegaly, No Pulsatile Mass, Non Tender, Soft Back: Normal Inspection, No CVA Tenderness, No Vertebral Tenderness Extremity: Normal Capillary Refill, Normal Inspection, Normal Range of Motion, Non Tender, No Calf Tenderness, No Pedal Edema Neurologic/Psychiatric: Alert, Oriented x3, No Motor/Sensory Deficits, Normal Mood/Affect Skin: Normal Color, Warm/Dry Lymphatic: No Adenopathy Results Results/Procedures Labs Laboratory Tests 12/10/21 10:15 Patient resulted labs reviewed. Assessment/Plan Admission Diagnosis Assessment: Acute respiratory failure hypoxic type ABG pending Aspiration pneumonia suspected Syncopal episode at home Elevated D-dimer suspect pulmonary embolism after ER work-up completed so will obtain CT angiogram and placed on therapeutic Lovenox Fever and chills Hypotension Plan: ABG CT angiogram Lovenox therapeutic dose Oxygen ICU Admission Status: Inpatient Order (span 2 midnights) Reason for Inpatient Admission: resp failure ADELE BELLA DO Dec 10, 2021 14:18
[2021-12-10] MEDS ORDERED: polyethylene glycoL POWDER 17 GM (MIRALAX) PACK PO PRN (14:45)
[2021-12-10] MEDS ORDERED: MILK OF MAGNESIA 400 MG/5 ML 30 ML UDC PO PRN (14:45)
[2021-12-10] MEDS ORDERED: NS IV 500 ML 500 ML IV PRN (14:45)
[2021-12-10] MEDS ORDERED: ANTACID SUSP 30 ML UDC (MYLANTA) PO PRN (14:45)
[2021-12-10] MEDS ORDERED: morphine IMMEDIATE RELEASE 15 MG TABLET PO PRN (14:45)
[2021-12-10] MEDS ORDERED: ALPRAZolam 0.5 MG (XANAX) TAB PO PRN (14:45)
[2021-12-10] MEDS ORDERED: diphenhydrAMINE 50 MG/ML INJ (BENADRYL) IVP PRN (14:45)
[2021-12-10] MEDS ORDERED: MELATONIN 3 MG TABLET PO PRN (14:45)
[2021-12-10] MEDS ORDERED: ONDANSETRON 4 MG (ZOFRAN) ORAL DISSOLVE TAB PO PRN (14:45)
[2021-12-10] MEDS ORDERED: BISACODYL 10 MG SUPP (DULCOLAX) PR PRN (14:45)
[2021-12-10] MEDS ORDERED: diphenhydrAMINE 25 MG TAB (BENADRYL) PO PRN (14:45)
[2021-12-10] MEDS ORDERED: CALCIUM CARBONATE 500 MG (TUMS) TAB.CHEW PO PRN (14:45)
[2021-12-10] MEDS ORDERED: LACTULOSE SYRUP 10GM/15ML (ENULOSE) 30ML UDC PO PRN (14:45)
[2021-12-10] MEDS ORDERED: ACETAMINOPHEN 325 MG TABLET PO PRN (14:45)
[2021-12-10] MEDS ORDERED: morphine INJ 4 MG/ML 1 ML (VIAL/SYRINGE) IV PRN (14:45)
[2021-12-10] MEDS ORDERED: ALLO300T2 PO (14:45)
[2021-12-10] MEDS ORDERED: DULO60CA59 PO (14:47)
[2021-12-10] MEDS ORDERED: ENOXAPARIN 40 MG/0.4 ML (LOVENOX) SYR SC SCH (15:00)
[2021-12-10] MEDS: ONDANSETRON 4 MG/2 ML (SDV) Z0FRAN IV PRN (15:03)
[2021-12-10] MEDS ORDERED: LIDOCAINE UROJET 2% GEL 10 ML PKG TOP NR (16:00)
[2021-12-10 16:11] LABS: BILIRUBIN,URINE NEGATIVE (NEGATIVE); CLARITY,URINE CLEAR; COLOR,URINE YELLOW; GLUCOSE, URINE (UA) NEGATIVE (NEGATIVE); KETONES,URINE NEGATIVE (NEGATIVE); LEUKOCYTE ESTERASE ,URINE TRACE (NEGATIVE); NITRITE,URINE NEGATIVE (NEGATIVE); PH,URINE 5.5 (5-9); PROTEIN,URINE 1+ (NEGATIVE)
[2021-12-10 16:18] LABS: BACTERIA,URINE FEW /HPF; HYALINE CASTS, URINE 0-2 /LPF; SQUAMOUS EPITHELIAL CELL,UR 0-2 /HPF
[2021-12-10 16:24] VITALS: BP 94/60
[2021-12-10 16:50] LABS: ABG BASE EXCESS -4.5 MMOL/L (-2.5-2.5); ABG OXYGEN SATURATION 97 % (94-100); ABG PCO2 43 MMHG (35-45); ABG PO2 86 MMHG (79-93); ABG TCO2 21.8 MMOL/L (21.0-31.0)
[2021-12-10 16:53] LABS: ABG PH 7.31 (7.37-7.43)
[2021-12-10 16:54] LABS: ALLENS TEST YES-POS; INSPIRED O2 10; PATIENT TEMP 38.1; VENTILATOR NO
[2021-12-10] MEDS ORDERED: IOHEXOL 350 MG/ML 100 ML (OMNIPAQUE 350) VIAL IV ONE (17:00)
[2021-12-10] MEDS ORDERED: NS 100 ML (IVPB) BAG IV ONE (17:00)
--- NOTE | 2021-12-10 17:04 | Tele-ICU Consult ---
History of Present Illness History of Present Illness Date Seen by Provider: Dec 10, 2021 Time Seen by Provider: 17:03 Date of Admission . (Tele-ICU Physician , consultation) Service provided via interactive audio and video telecommunications E-CARE system to a patient admitted to ICU bed in [facility]. Available chart/ vitals / labs / Images reviewed H&P is from ER notes Patient's information available about PMH, Shx, Fhx allergy reviewed inEMR. ROS as per chart and RN report Now in ICU, hemodynamically stable Video assessment done using teleICU camera, rest of exam as per RN Discussed with RN. Consultants: Hospital course: (12/10) 66yM admitted from the ED for syncope, N/V/D. 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 Discussed with RN to reach out if any questions or concerns A total of 32 minutes of critical care time was devoted to this patient today, required to treat and/or prevent further deterioration of critical care condition ( as above ) . I am remotely monitoring this patient from another state. I am unable to do the bedside exam, and history/physical and pertinent information is taken from other notes in the computer and bedside staff. Allergies and Home Medications Allergies Coded Allergies: codeine (Unverified Adverse Reaction, Mild, HEADACHE, 09/27/20) Home Medications Allopurinol 300 Mg Tablet, 200 MG PO DAILY Prescribed by: BILLY SÁNCHEZ on 12/10/21 1445 Amlodipine Besylate 5 Mg Tablet, 5 MG PO DAILY, (Reported) Atorvastatin Calcium 20 Mg Tablet, 20 MG PO DAILY, (Reported) Duloxetine HCl 60 Mg Capsule.dr, 60 MG PO DAILY Prescribed by: BILLY SÁNCHEZ on 12/10/21 1447 Lisinopril 20 Mg Tablet, 20 MG PO DAILY, (Reported) Omeprazole 40 Mg Capsule.dr, 40 MG PO DAILY, (Reported) Timolol 5 Ml Drops, 5 ML OP DAILY, (Reported) Past Medical/Social/Family Hx Patient Social History Marrital Status: Employed/Student: retired Tobacco Use?: No Smoking Status: Current Everyday Smoker Use of E-Cig and/or Vaping dev: No Substance use?: No Alcohol Use?: No Pt stated abuse/neglect: No Immunizations Up To Date Influenza Vaccine Up-to-Date: Yes; Up-to-Date First/Initial COVID19 Vaccinat: NONE Second COVID19 Vaccination [place]: NONE Current Status Advance Directives: No Communicates: Verbally Primary Language: Moldovan Preferred Spoken Language: Moldovan Is interpretation needed?: No Sensory deficits: Hearing impairment Implanted or Applied Medical D: None Review of Systems Constitutional: see HPI Focused Exam Lactate Level 12/10/21 11:08: Lactic Acid Level 1.54 Height, Weight, BMI Height: '" Weight: lbs. oz. kg; 25.35 BMI Method:Stated Time of Focused Exam: 12:00 Exam Exam Patient acknowledged, consented, and participated in this virtual visit which was conducted using real time audio/video Vital Signs Date Time Temp Pulse Resp B/P (MAP) Pulse Ox O2 Delivery O2 Flow Rate FiO2 12/10/21 16:45 96 OxyMask 10.00 12/10/21 16:24 36.7 80 91 32 12/10/21 15:55 OxyMask 10.00 12/10/21 15:40 38.7 12/10/21 15:00 109 15 108/63 (78) 95 OxyMask 10.00 12/10/21 14:55 111 12/10/21 14:02 38.1 113 25 110/77 (88) 95 OxyMask 10.00 12/10/21 14:00 112 22 110/77 (88) 94 OxyMask 10.00 12/10/21 14:00 OxyMask 10.00 12/10/21 13:50 36.5 105 16 118/80 94 OxyMask 10.00 12/10/21 10:11 36.7 80 20 94/60 (71) 91 Nasal Cannula 3.00 Height & Weight Height: '" Weight: lbs. oz. kg; 25.35 BMI Method:Stated General Appearance: Anxious, Chronically ill, Moderate Distress, Other (ashen) HEENT: PERRL/EOMI, Normal ENT Inspection, Pharynx Normal, Moist Mucous Membranes Neck: Full Range of Motion, Normal Inspection, Non Tender Respiratory: Chest Non Tender, Lungs Clear, No Accessory Muscle Use, No Respiratory Distress, Decreased Breath Sounds Cardiovascular: Regular Rate, Rhythm, No Edema, No Gallop, No JVD, No Murmur, Normal Peripheral Pulses Capillary Refill: Less Than 3 Seconds Peripheral Pulses: 1+ Radial Pulses (R), 1+ Radial Pulses (L) Gastrointestinal: normal bowel sounds, soft, tenderness (mild epigastric tenderness) Extremity: Normal Capillary Refill, Normal Inspection, Normal Range of Motion, Non Tender, No Calf Tenderness, No Pedal Edema Neurologic/Psychiatric: Alert, Oriented x3, No Motor/Sensory Deficits, Normal Mood/Affect Skin: Normal Color, Warm/Dry Lymphatic: No Adenopathy Results Lab Laboratory Tests 12/10/21 10:15 Assessment/Plan Assessment/Plan 1 KYRA DE DIOS MD Dec 10, 2021 17:04
--- NOTE | 2021-12-10 17:34 | Diagnostic Imaging Report ---
PROCEDURE: CT angiography of the chest with contrast. TECHNIQUE: Multiple contiguous axial images were obtained through the chest after uneventful bolus administration of intravenous contrast. 3D reconstructed CTA MIP acquisitions were also performed. Auto Exposure Controls were utilized during the CT exam to meet ALARA standards for radiation dose reduction. INDICATION: Hypoxia and pneumonia. FINDINGS: There is no CT angiographic finding of filling defect within the pulmonary arteries to suggest pulmonary embolus. There is no evidence of right ventricular strain. There is atherosclerotic calcification within a normal caliber aorta without dissection or aneurysm. There is no filling defect evident within the left atrium. The lungs demonstrate dense bilateral lower lobe consolidation likely reflective of pneumonia given air bronchograms. Lungs otherwise appear clear. There is no significant pleural fluid. There is no pneumothorax. There are prominent bilateral hilar, mediastinal and subcarinal lymph nodes presumably reactive in nature. Follow-up after treatment is recommended. Note is made of some fluid throughout the esophagus. The upper abdomen demonstrates renal cysts and renal vascular calcifications but no acute upper abdominal abnormality. Thoracic spine alignment is normal. Vertebral body heights are maintained. There are multilevel endplate changes but no acute or suspicious osseous abnormality. IMPRESSION: 1. No CT angiographic evidence of pulmonary embolism. 2. Thoracic aorta demonstrates no dissection or aneurysm. 3. Bilateral lower lobe consolidation with air bronchograms suggestive of pneumonia. There is also hilar and mediastinal adenopathy presumably reactive in nature though follow-up after treatment is recommended. 4. Nonspecific fluid distention of the esophagus. This may relate to reflux. Dictated by: Dictated on workstation # [id number]
[2021-12-10] MEDS: PIPERACILLIN SODIUM/TAZOBACTAM 4.5 GM in NS (IVPB) 100 ML IV SCH (17:52)
[2021-12-10] MEDS: RT-ALBUTEROL/IPRATROPIUM 3 ML (DUONEB) VIAL INH SCH ×2 (18:45→22:34)
[2021-12-10] MEDS ORDERED: RT-ALBUTEROL/IPRATROPIUM 3 ML (DUONEB) VIAL INH PRN (20:00)
[2021-12-10] MEDS: SENNOSIDES 8.6 MG (SENOKOT) TAB PO SCH (21:00)
[2021-12-10] MEDS: DOCUSATE SODIUM 100 MG (COLACE) CAP PO SCH (21:00)
[2021-12-10] MEDS ORDERED: ENOXAPARIN 80 MG/0.8 ML (LOVENOX) SYR SC SCH (21:00)
[2021-12-11] MEDS: ONDANSETRON 4 MG/2 ML (SDV) Z0FRAN IV PRN ×2 (00:21→06:18)
[2021-12-11] MEDS: RT-ALBUTEROL/IPRATROPIUM 3 ML (DUONEB) VIAL INH SCH ×5 (02:23→19:43)
[2021-12-11] MEDS: PIPERACILLIN SODIUM/TAZOBACTAM 4.5 GM in NS (IVPB) 100 ML IV SCH ×3 (02:39→18:31)
[2021-12-11 04:39] LABS: BASOPHILS # (AUTO) 0.1 10^3/uL (0.0-0.1); BASOPHILS % (AUTO) 0 % (0-10); EOSINOPHILS % (AUTO) 0 % (0-10); HEMATOCRIT 39 % (40-54); HEMOGLOBIN 13.3 g/dL (13.3-17.7); LYMPHOCYTES % (AUTO) 5 % (12-44); MEAN CORPUSCULAR HEMOGLOBIN 29 pg (25-34); MEAN CORPUSCULAR HGB CONC 35 g/dL (32-36); MEAN CORPUSCULAR VOLUME 85 fL (80-99); MEAN PLATELET VOLUME 9.4 fL (9.0-12.2); MONOCYTES # (AUTO) 0.7 10^3/uL (0.0-1.0); MONOCYTES % (AUTO) 3 % (0-12); NEUTROPHILS # (AUTO) 18.1 10^3/uL (1.8-7.8); NEUTROPHILS % (AUTO) 91 % (42-75); PLATELET COUNT 216 10^3/uL (130-400)
[2021-12-11 04:54] LABS: ALBUMIN 3.1 GM/DL (3.2-4.5); POTASSIUM 3.6 MMOL/L (3.6-5.0)
[2021-12-11 04:55] LABS: CALCIUM 8.7 MG/DL (8.5-10.1)
[2021-12-11 04:57] LABS: TOTAL PROTEIN 6.1 GM/DL (6.4-8.2)
[2021-12-11 04:58] LABS: BILIRUBIN,TOTAL 0.8 MG/DL (0.1-1.0)
[2021-12-11 05:00] LABS: CREATININE SERUM 1.14 MG/DL (0.60-1.30); PHOSPHORUS 3.7 MG/DL (2.3-4.7)
[2021-12-11 05:03] LABS: MAGNESIUM 1.5 MG/DL (1.6-2.4)
[2021-12-11] MEDS: MAGNESIUM 1 GM/100 ML IVPB 100 ML IV SCH ×3 (06:18→07:21)
[2021-12-11] MEDS: POTASSIUM CL 10MEQ/50ML IVPB 50 ML IV SCH ×3 (06:18→07:21)
[2021-12-11] MEDS: KCL 20 MEQ TAB (K-DUR) PO SCH (06:18)
[2021-12-11 06:20] LABS: ABG BASE EXCESS -3.2 MMOL/L (-2.5-2.5); ABG OXYGEN SATURATION 96 % (94-100); ABG PCO2 42 MMHG (35-45); ABG PO2 82 MMHG (79-93)
[2021-12-11 06:23] LABS: ABG PH 7.33 (7.37-7.43); ALLENS TEST YES-POS
[2021-12-11 06:24] LABS: INSPIRED O2 6L; PATIENT TEMP 37.2; VENTILATOR NO
[2021-12-11] MEDS: NS IV 1000 ML 1,000 ML IV SCH ×3 (07:21→23:18)
[2021-12-11] MEDS: ENOXAPARIN 40 MG/0.4 ML (LOVENOX) SYR SC SCH (08:01)
--- NOTE | 2021-12-11 09:00 | Diagnostic Imaging Report ---
Indication: Weakness with nausea and vomiting. Comparison with 12/10/2021. FINDINGS: Portable chest. There is bibasilar discoid atelectasis which has developed. There has been some increase in density in the medial right lung base which may well represent increasing pneumonia perhaps from aspiration. The upper lungs remain clear. There is no pleural effusion. The heart is not enlarged. IMPRESSION: Development of bilateral discoid atelectasis with increasing density medially in the right lung base likely representing pneumonia. Dictated by: Dictated on workstation # [id number]
[2021-12-11] MEDS: DOCUSATE SODIUM 100 MG (COLACE) CAP PO SCH ×2 (09:42→19:59)
[2021-12-11] MEDS: SENNOSIDES 8.6 MG (SENOKOT) TAB PO SCH ×2 (09:42→19:59)
[2021-12-11] MEDS: PANTOPRAZOLE 40 MG (PROTONIX) VIAL IV SCH (09:48)
--- NOTE | 2021-12-11 10:15 | Tele-ICU Progress Note ---
Subjective Date Seen by a Provider: Dec 11, 2021 Time Seen by a Provider: 10:15 Subjective/Events-last exam (Tele-ICU Physician , Progress Note ) Service provided via interactive audio and video telecommunications E-CARE system to a patient admitted to ICU bed in [facility]. Available chart/ vitals / labs / Images reviewed Video assessment done using teleICU camera, rest of exam as per RN Discussed with RN Events overnight : Afebrile hemodynamically stable Respiratory - 6l I/O = Drips: Pressors- no Consultants: Hospital course: (12/10) 66yM admitted from the ED for syncope, N/V/D. 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 Discussed with RN to reach out if any questions or concerns A total of 25 minutes of critical care time was devoted to this patient today, required to treat and/or prevent further deterioration of critical care condition ( as above ) . I am remotely monitoring this patient from another state. I am unable to do the bedside exam, and history/physical and pertinent information is taken from other notes in the computer and bedside staf Sepsis Event Evaluation Height, Weight, BMI Height: '" Weight: lbs. oz. kg; 25.35 BMI Method:Stated Focused Exam Lactate Level 12/10/21 11:08: Lactic Acid Level 1.54 Time of Focused Exam: 12:00 Exam Exam Patient acknowledged, consented, and participated in this virtual visit which was conducted using real time audio/video Vital Signs Date Time Temp Pulse Resp B/P (MAP) Pulse Ox O2 Delivery O2 Flow Rate FiO2 12/11/21 08:00 36.4 12/11/21 08:00 118 16 134/79 (97) 97 Nasal Cannula 6.00 12/11/21 08:00 97 Nasal Cannula 6.00 12/11/21 07:15 115 12/11/21 07:02 94 Nasal Cannula 6.00 12/11/21 07:00 106 20 102/71 (81) 95 Nasal Cannula 6.00 12/11/21 06:00 107 21 119/76 (90) 96 Nasal Cannula 6.00 12/11/21 05:00 112 20 109/67 (81) 93 OxyMask 6.00 12/11/21 04:00 OxyMask 10.00 12/11/21 04:00 123 19 117/76 (90) 94 OxyMask 6.00 12/11/21 04:00 37.3 12/11/21 03:00 116 23 112/74 (86) 94 OxyMask 6.00 12/11/21 02:23 94 OxyMask 6.00 12/11/21 02:00 111 19 117/75 (90) 94 OxyMask 6.00 12/11/21 01:00 111 23 107/72 (84) 94 OxyMask 6.00 12/11/21 01:00 111 12/11/21 00:00 38.6 12/11/21 00:00 120 16 104/71 (82) 95 OxyMask 6.00 12/11/21 00:00 OxyMask 10.00 12/10/21 23:00 118 25 112/69 (83) 95 OxyMask 6.00 12/10/21 22:34 95 OxyMask 6.00 12/10/21 22:00 112 21 101/66 (78) 97 OxyMask 6.00 12/10/21 21:00 116 25 92/61 (71) 94 OxyMask 6.00 12/10/21 20:00 133 26 109/75 (86) 94 OxyMask 6.00 12/10/21 20:00 OxyMask 10.00 12/10/21 19:30 38.2 12/10/21 19:00 125 18 108/66 (80) 96 OxyMask 6.00 12/10/21 19:00 125 12/10/21 18:45 96 OxyMask 6.00 12/10/21 18:00 121 15 104/69 (81) 96 OxyMask 10.00 12/10/21 17:00 124 22 111/72 (85) 98 OxyMask 10.00 12/10/21 16:45 96 OxyMask 10.00 12/10/21 16:24 36.7 80 91 32 12/10/21 16:00 124 24 102/74 (83) 94 OxyMask 10.00 12/10/21 15:55 OxyMask 10.00 12/10/21 15:40 38.7 12/10/21 15:00 109 15 108/63 (78) 95 OxyMask 10.00 12/10/21 14:55 111 12/10/21 14:02 38.1 113 25 110/77 (88) 95 OxyMask 10.00 12/10/21 14:00 112 22 110/77 (88) 94 OxyMask 10.00 12/10/21 14:00 OxyMask 10.00 12/10/21 13:50 36.5 105 16 118/80 94 OxyMask 10.00 I & O 12/11/21 07:00 Intake Total 2040 ml Output Total 1250 ml Balance 790 ml Height & Weight Height: '" Weight: lbs. oz. kg; 25.35 BMI Method:Stated General Appearance: Anxious, Chronically ill, Moderate Distress, Other (ashen) HEENT: PERRL/EOMI, Normal ENT Inspection, Pharynx Normal, Moist Mucous Membranes Neck: Full Range of Motion, Normal Inspection, Non Tender Respiratory: Chest Non Tender, Lungs Clear, No Accessory Muscle Use, No Respiratory Distress, Decreased Breath Sounds Cardiovascular: Regular Rate, Rhythm, No Edema, No Gallop, No JVD, No Murmur, Normal Peripheral Pulses Capillary Refill: Less Than 3 Seconds Peripheral Pulses: 1+ Radial Pulses (R), 1+ Radial Pulses (L) Gastrointestinal: normal bowel sounds, soft, tenderness (mild epigastric tenderness) Extremity: Normal Capillary Refill, Normal Inspection, Normal Range of Motion, Non Tender, No Calf Tenderness, No Pedal Edema Neurologic/Psychiatric: Alert, Oriented x3, No Motor/Sensory Deficits, Normal Mood/Affect Skin: Normal Color, Warm/Dry Lymphatic: No Adenopathy Results Lab Laboratory Tests 12/10/21 10:15 12/11/21 04:33 Assessment/Plan Assessment/Plan 1 KYRA DE DIOS MD Dec 11, 2021 10:15
[2021-12-11] MEDS ORDERED: ALLO100T PO (10:54)
[2021-12-11] MEDS ORDERED: DIPH25CA79 PO (10:54)
[2021-12-11] MEDS ORDERED: GLUC-219 PO (10:54)
[2021-12-11] MEDS ORDERED: DULO60CA59 PO (10:54)
[2021-12-11] MEDS ORDERED: TIMO5DRO5 OU (10:54)
[2021-12-11] MEDS: SUCRALFATE 1 GM (CARAFATE) TAB PO SCH ×3 (10:57→20:03)
--- NOTE | 2021-12-11 12:43 | Progress Note ---
Subjective Subjective Date Seen by Provider: Dec 11, 2021 Time Seen by Provider: 12:37 Pt being seen in f/u for acute respiratory distress and syncopal episode. Pt was resting comfortably in bed this morning on 6L O2 via NC with adequate oxygen saturation. When asked about his syncopal episode he states he was in the shower and became lightheaded, started seeing stars and threw up before making it to the toilet where he passed out. He has had several close calls previously, but never actually had a syncopal episode. He never sought medical treatment for those. Prior to the episode he had one day of vomiting and diarrhea, which he attributes to his gout medication, which he cannot recall the name of. He states he is currently having a gout flare in his right elbow. He does admit that he has seemed dehydrated lately. Pt also reports a cough and SOA for the last two months. HIs only complaint today is some neck pain which is chronic and acid reflux. He denies CP, palpitations, fever, chills, trouble with urination or any other concerns. Review of Systems General: No Chills, No Fatigue HEENT: No Head Aches, No Visual Changes Pulmonary: No Dyspnea; Cough Cardiovascular: No: Chest Pain, Palpitations, Lt Headedness Gastrointestinal: No: Nausea, Vomiting, Abdominal Pain Genitourinary: No Dysuria, No Frequency Musculoskeletal: neck pain Neurological: No: Weakness, Numbness All Other Systems Reviewed All Other Systems Reviewed: Yes Objective Exam Vital Signs Vital Signs Date Time Temp Pulse Resp B/P (MAP) Pulse Ox O2 Delivery O2 Flow Rate FiO2 12/11/21 11:00 122 14 124/74 (91) 98 Nasal Cannula 6.00 12/11/21 10:36 96 Nasal Cannula 6.00 12/11/21 10:00 115 18 114/78 (90) 96 Nasal Cannula 6.00 12/11/21 09:00 121 19 116/76 (89) 96 Nasal Cannula 6.00 12/11/21 08:00 36.4 12/11/21 08:00 118 16 134/79 (97) 97 Nasal Cannula 6.00 12/11/21 08:00 97 Nasal Cannula 6.00 12/11/21 07:15 115 12/11/21 07:02 94 Nasal Cannula 6.00 12/11/21 07:00 106 20 102/71 (81) 95 Nasal Cannula 6.00 12/11/21 06:00 107 21 119/76 (90) 96 Nasal Cannula 6.00 12/11/21 05:00 112 20 109/67 (81) 93 OxyMask 6.00 12/11/21 04:00 OxyMask 10.00 12/11/21 04:00 123 19 117/76 (90) 94 OxyMask 6.00 12/11/21 04:00 37.3 12/11/21 03:00 116 23 112/74 (86) 94 OxyMask 6.00 12/11/21 02:23 94 OxyMask 6.00 12/11/21 02:00 111 19 117/75 (90) 94 OxyMask 6.00 12/11/21 01:00 111 23 107/72 (84) 94 OxyMask 6.00 12/11/21 01:00 111 12/11/21 00:00 38.6 12/11/21 00:00 120 16 104/71 (82) 95 OxyMask 6.00 12/11/21 00:00 OxyMask 10.00 12/10/21 23:00 118 25 112/69 (83) 95 OxyMask 6.00 12/10/21 22:34 95 OxyMask 6.00 12/10/21 22:00 112 21 101/66 (78) 97 OxyMask 6.00 12/10/21 21:00 116 25 92/61 (71) 94 OxyMask 6.00 12/10/21 20:00 133 26 109/75 (86) 94 OxyMask 6.00 12/10/21 20:00 OxyMask 10.00 12/10/21 19:30 38.2 12/10/21 19:00 125 18 108/66 (80) 96 OxyMask 6.00 12/10/21 19:00 125 12/10/21 18:45 96 OxyMask 6.00 12/10/21 18:00 121 15 104/69 (81) 96 OxyMask 10.00 12/10/21 17:00 124 22 111/72 (85) 98 OxyMask 10.00 12/10/21 16:45 96 OxyMask 10.00 12/10/21 16:24 36.7 80 91 32 12/10/21 16:00 124 24 102/74 (83) 94 OxyMask 10.00 12/10/21 15:55 OxyMask 10.00 12/10/21 15:40 38.7 12/10/21 15:00 109 15 108/63 (78) 95 OxyMask 10.00 12/10/21 14:55 111 12/10/21 14:02 38.1 113 25 110/77 (88) 95 OxyMask 10.00 12/10/21 14:00 112 22 110/77 (88) 94 OxyMask 10.00 12/10/21 14:00 OxyMask 10.00 12/10/21 13:50 36.5 105 16 118/80 94 OxyMask 10.00 I & O 12/11/21 07:00 Intake Total 2040 ml Output Total 1250 ml Balance 790 ml General Appearance: No Apparent Distress, WD/WN Eyes: Right Eye Normal Inspection, Right Eye PERRL HEENT: PERRL/EOMI, Moist Mucous Membranes Neck: Full Range of Motion, Normal Inspection, Non Tender Respiratory: Chest Non Tender, No Accessory Muscle Use, No Respiratory Distress, Crackles (right lower lobe) Cardiovascular: Regular Rate, Rhythm, No Edema, Normal Peripheral Pulses Gastrointestinal: Normal Bowel Sounds, No Organomegaly, Non Tender, Soft Extremity: Normal Capillary Refill, Normal Inspection, Normal Range of Motion, No Pedal Edema Neurologic/Psychiatric: Alert, Oriented x3, Normal Mood/Affect Skin: Normal Color, Warm/Dry Lymphatic: No Adenopathy Results Lab Laboratory Tests 12/10/21 16:00: Urine Color YELLOW, Urine Clarity CLEAR, Urine pH 5.5, Urine Specific [place] 1.025H, Urine Protein 1+H, Urine Glucose (UA) NEGATIVE, Urine Ketones NEGATIVE, Urine Nitrite NEGATIVE, Urine Bilirubin NEGATIVE, Urine Urobilinogen 0.2, Urine Leukocyte Esterase TRACEH, Urine RBC (Auto) NEGATIVE, Urine RBC NONE, Urine WBC 5-10H, Urine Squamous Epithelial Cells 0-2, Urine Crystals NONE, Urine Bacteria FEWH, Urine Casts PRESENT, Urine Hyaline Casts 0-2H, Urine Mucus NEGATIVE, Urine Culture Indicated YES 12/10/21 16:43: Blood Gas Puncture Site LT RADIAL, Blood Gas Patient Temperature 38.1, Arterial Blood pH 7.31*L, Arterial Blood Partial Pressure CO2 43, Arterial Blood Partial Pressure O2 86, Arterial Blood HCO3 21L, Arterial Blood Total CO2 21.8, Arterial Blood Oxygen Saturation 97, Arterial Blood Base Excess -4.5L, Fili Test YES- POS, Blood Gas Ventilator Setting NO, Blood Gas Inspired Oxygen 10 12/11/21 04:33: White Blood Count 20.0H, Red Blood Count 4.53, Hemoglobin 13.3, Hematocrit 39L, Mean Corpuscular Volume 85, Mean Corpuscular Hemoglobin 29, Mean Corpuscular Hemoglobin Concent 35, Red Cell Distribution Width 14.0, Platelet Count 216, Mean Platelet Volume 9.4, Immature Granulocyte % (Auto) 1, Neutrophils (%) (Auto) 91H, Lymphocytes (%) (Auto) 5L, Monocytes (%) (Auto) 3, Eosinophils (%) (Auto) 0, Basophils (%) (Auto) 0, Neutrophils # (Auto) 18.1H, Lymphocytes # (Auto) 1.0, Monocytes # (Auto) 0.7, Eosinophils # (Auto) 0.0, Basophils # (Auto) 0.1, Immature Granulocyte # (Auto) 0.1, Sodium Level 141, Potassium Level 3.6, Chloride Level 111H, Carbon Dioxide Level 18L, Anion Gap 12, Blood Urea Nitrogen 18, Creatinine 1.14, Estimat Glomerular Filtration Rate 71, BUN/Creatinine Ratio 16, Glucose Level 153H, Calcium Level 8.7, Corrected Calcium 9.4, Phosphorus Level 3.7, Magnesium Level 1.5L, Total Bilirubin 0.8, Aspartate Amino Transf (AST/SGOT) 19, Alanine Aminotransferase (ALT/SGPT) 16, Alkaline Phosphatase 103, Total Protein 6.1L, Albumin 3.1L 12/11/21 06:12: Blood Gas Puncture Site RIGHT RADIAL, Blood Gas Patient Temperature 37.2, Arterial Blood pH 7.33*L, Arterial Blood Partial Pressure CO2 42, Arterial Blood Partial Pressure O2 82, Arterial Blood HCO3 22L, Arterial Blood Total CO2 23.0, Arterial Blood Oxygen Saturation 96, Arterial Blood Base Excess -3.2L, Fili Test YES-POS, Blood Gas Ventilator Setting NO, Blood Gas Inspired Oxygen 6L Microbiology 12/10/21 MRSA Screen - Final, Complete MRSA not isolated Assessment/Plan Assessment/Plan Admission Dx Acute respiratory failure with hypoxia Syncopal episode Reason for Inpatient Admission: Syncopal episode and acute respiratory distress Assessment and Plan Acute respiratory failure with hypoxia Syncopal episode RLL pneumonia Leukocytosis Elevated d-dimer with normal CTA Hypomagnesemia Elevated CRP Acute respiratory failure with hypoxia -Currently on 6L O2 via NC with adequate oxygen saturations -Transferred to 4th medical floor from ICU -Continue to decrease oxygen as tolerated -Duoneb Syncopal episode -Likely d/t dehydration -Will monitor closely for syncopal events, lightheadedness or dizziness RLL pneumonia -Pip/Tazo Acid reflux secondary to hiatal hernia -Start Protonix -Start carafate with meals -Dysphagia 3 diet Leukocytosis -Likely secondary to gout flare Elevated d-dimer with normal CTA -Lovenox 40mg Hypomagnesemia -Mag sulfate/dextrose Elevated CRP -Likely secondary to gout flare Disposition: Pt transitioned to 4th medical floor from ICU. Continue to wean off oxygen, goal is to go home without it. Likely home tomorrow or the next day if improving. Diet: Dysphagia 3 diet Supervisory-Addendum Brief Verification & Attestation Participated in pt care: history, physical Personally performed: exam, history Care discussed with: Medical Student Procedures: n/a Verification and Attestation of Medical Student E/M Service A medical student performed and documented this service in my presence. I reviewed and verified all information documented by the medical student and made modifications to such information, when appropriate. I personally performed the physical exam and medical decision making. Jimena Berg, Dec 11, 2021,15:31 Acute Respiratory Failure with hypoxia RLL PNA Elevated D-Dimer Leukocytosis - MAT protocol, IS, titrate oxygen as tolerated, Continue antibiotics and steroids GERD Hiatal Hernia - Continue PPI, start carafate due to increasing symptoms HypoMag - Replace and follow LAURA: Resolved BARRY INTERIANO MED STUDENT Dec 11, 2021 12:42 JIMENA BERG MD Dec 11, 2021 15:37
[2021-12-11 16:13] VITALS: BP 108/71
[2021-12-11 19:22] VITALS: BP 119/70
[2021-12-11] MEDS ORDERED: LORATADINE (CLARITIN) 10 MG TAB ONE (21:31)
[2021-12-11] MEDS: LORATADINE (CLARITIN) 10 MG TAB PO SCH (21:34)
[2021-12-12 00:30] VITALS: BP 121/2
[2021-12-12] MEDS: PIPERACILLIN SODIUM/TAZOBACTAM 4.5 GM in NS (IVPB) 100 ML IV SCH ×2 (02:32→10:19)
[2021-12-12 04:09] VITALS: BP 129/78
[2021-12-12] MEDS: SUCRALFATE 1 GM (CARAFATE) TAB PO SCH ×3 (06:16→16:18)
[2021-12-12 06:26] LABS: MEAN CORPUSCULAR VOLUME 87 fL (80-99)
[2021-12-12 06:27] LABS: BASOPHILS % (AUTO) 0 % (0-10); EOSINOPHILS # (AUTO) 0.1 10^3/uL (0.0-0.3); EOSINOPHILS % (AUTO) 1 % (0-10); HEMATOCRIT 33 % (40-54); LYMPHOCYTES # (AUTO) 0.6 10^3/uL (1.0-4.0); LYMPHOCYTES % (AUTO) 5 % (12-44); MEAN CORPUSCULAR HEMOGLOBIN 29 pg (25-34); MEAN CORPUSCULAR HGB CONC 33 g/dL (32-36); MEAN PLATELET VOLUME 9.8 fL (9.0-12.2); MONOCYTES # (AUTO) 0.4 10^3/uL (0.0-1.0); MONOCYTES % (AUTO) 4 % (0-12); NEUTROPHILS # (AUTO) 9.6 10^3/uL (1.8-7.8); NEUTROPHILS % (AUTO) 89 % (42-75); PLATELET COUNT 187 10^3/uL (130-400); WHITE BLOOD COUNT 10.8 10^3/uL (4.3-11.0)
[2021-12-12 06:29] LABS: SMEAR SCAN COMMENT YES
[2021-12-12 06:51] LABS: ALBUMIN 2.9 GM/DL (3.2-4.5); BILIRUBIN,TOTAL 0.7 MG/DL (0.1-1.0); CALCIUM 8.7 MG/DL (8.5-10.1); CREATININE SERUM 0.8 MG/DL (0.60-1.30); MAGNESIUM 1.6 MG/DL (1.6-2.4); PHOSPHORUS 1.8 MG/DL (2.3-4.7); POTASSIUM 3.7 MMOL/L (3.6-5.0)
[2021-12-12] MEDS: MAGNESIUM 1 GM/100 ML IVPB 100 ML IV SCH (06:55)
[2021-12-12] MEDS: POTASSIUM CL 10MEQ/50ML IVPB 50 ML IV SCH (06:55)
[2021-12-12] MEDS: NS IV 1000 ML 1,000 ML IV SCH (06:56)
[2021-12-12] MEDS: KCL 20 MEQ TAB (K-DUR) PO SCH (06:56)
[2021-12-12] MEDS: RT-ALBUTEROL/IPRATROPIUM 3 ML (DUONEB) VIAL INH SCH ×3 (07:16→15:21)
[2021-12-12 08:25] VITALS: BP 122/73
[2021-12-12] MEDS: DOCUSATE SODIUM 100 MG (COLACE) CAP PO SCH (08:30)
[2021-12-12] MEDS: LORATADINE (CLARITIN) 10 MG TAB PO SCH (08:30)
[2021-12-12] MEDS: PANTOPRAZOLE 40 MG (PROTONIX) VIAL IV SCH (08:30)
[2021-12-12] MEDS: SENNOSIDES 8.6 MG (SENOKOT) TAB PO SCH (08:30)
[2021-12-12] MEDS: ENOXAPARIN 40 MG/0.4 ML (LOVENOX) SYR SC SCH (08:30)
[2021-12-12] MEDS ORDERED: TAMSULOSIN 0.4 MG (FLOMAX) CAP PO SCH (11:30)
--- NOTE | 2021-12-12 11:40 | Discharge Summary ---
Diagnosis/Chief Complaint Date of Admission Dec 10, 2021 at 12:22 Date of Discharge 12/12/21 Discharge Summary-Simple/Stand Consultations Discharge Physical Examination Allergies: Coded Allergies: codeine (Unverified Adverse Reaction, Mild, HEADACHE, 09/27/20) Vitals & I&Os Vital Sign - Last 12Hours Date Time Temp Pulse Resp B/P (MAP) Pulse Ox O2 Delivery O2 Flow Rate FiO2 12/12/21 11:11 92 Nasal Cannula 5.00 12/12/21 08:25 37.9 86 18 122/73 (89) 12/10/21 16:24 32 Intake and Output 12/12/21 00:00 Intake Total 1080 ml Output Total 725 ml Balance 355 ml General Appearance: Alert, Oriented X3, No Acute Distress Respiratory: Clear to Auscultation, Normal Air Movement Cardiovascular: Regular Rate, No Murmurs Abdominal: Normal Bowel Sounds, Soft, No Tenderness Extremities: No Edema, No Tenderness/Swelling Neuro: Normal Speech, Strength at 5/5 X4 Ext, Cranial Nerves 3-12 NL Psych/Mental Status: Mental Status NL, Mood NL Hospital Course See final discharge diagnosis. Discussion & Recommendations 66 yo M that presented with acute respiratory failure with hypoxia and PNA. Patient will have new oxygen requirement at discharge. Discharge Condition at discharge stable Instructions to patient/family Please see electronic discharge instructions given to patient. Discharge Medications Reviewed and agree with Discharge Medication list on patient's Discharge Instruction sheet JIMENA PATEL MD Dec 12, 2021 11:40
[2021-12-12] MEDS ORDERED: LISI20TA26 PO (11:44)
[2021-12-12] MEDS ORDERED: AMOX-355 PO (11:44)
[2021-12-12] MEDS ORDERED: LORA10TA7 PO (11:44)
[2021-12-12] MEDS ORDERED: TMSL.4C PO (11:44)
[2021-12-12] MEDS ORDERED: AMLO-250 PO (11:44)
[2021-12-12 11:45] VITALS: BP 135/77
--- NOTE | 2021-12-12 11:45 | Discharge Summary ---
Discharge [facility] Reconcile Patient Problems Problems Reviewed?: Yes Discharge Medications New, Converted or Re-Newed RX: Transmitted to Pharmacy New Medications: Amoxicillin/Potassium Clav (Augmentin 500-125 Tablet) 500 Mg-125 Mg Tablet 1 EACH PO BID for 5 Days, #10 TAB Loratadine (Loratadine) 10 Mg Tablet 10 MG PO DAILY, #30 TAB Tamsulosin HCl (Flomax) 0.4 Mg Cap 0.4 MG PO DAILY@1800, #14 CAP Changed Medications: Amlodipine Besylate (Amlodipine Besylate) 5 Mg Tablet 5 MG PO HS for 30 Days, TAB (Medication details modified) Hold until seen in outpatient clinic, bp normotensive at d.c Lisinopril (Lisinopril) 20 Mg Tablet 20 MG PO HS for 30 Days, TAB (Medication details modified) Hold until seen in outpatient clinic, bp normotensive at d.c Continued Medications: Allopurinol (Allopurinol) 100 Mg Tablet 200 MG PO HS, TAB TAKES 2 (100MG) TABS Atorvastatin Calcium (Atorvastatin Calcium) 20 Mg Tablet 20 MG PO HS, TAB Diphenhydramine HCl (Benadryl) 25 Mg Capsule 25-50 MG PO Q6H PRN for ALLERGY SYMPTOMS, CAP Duloxetine HCl (Duloxetine HCl) 60 Mg Capsule.dr 60 MG PO DAILY, CAP Glucosamine/D3/Boswellia Anne (Osteo Bi-Flex Tablet) 1,500 Mg-400 Unit-100 Mg Tablet 1 EACH PO BID, TAB Omeprazole (Omeprazole) 40 Mg Capsule.dr 40 MG PO DAILY, CAP Timolol Maleate (Timolol Maleate 0.5%) 0.5 % Drops 1 DROP OU DAILY, EA Patient Instructions Goal/Follow Up Appt: 1-2 weeks with PCP at [facility] Patient Instructions: - Holding blood pressure medications until seen in clinic due to normotensive pressures in hospital - Make sure to complete all your antibiotics - New oxygen need at d/c Activity & Diet Discharge Diet: Cardiac Diet Activity as Tolerated: Yes JIMENA PATEL MD Dec 12, 2021 11:45
--- NOTE | 2021-12-12 11:45 | Discharge Summary ---
Diagnosis/Chief Complaint Date of Admission Dec 10, 2021 at 12:22 Date of Discharge 12/12/2021 Discharge Date: Dec 12, 2021 Discharge Time: 11:40 Admission Diagnosis Admission Diagnosis Acute respiratory failure and RLL pneumonia Discharge Diagnosis Acute respiratory failure and RLL pneumonia Discharge Summary Hospital Course Hospital Course Luis Daniel Larson is a 66 yo male who was admitted to the ICU after a syncopal episode with fall. Pt was found to have acute respiratory failure and RLL pneumonia. He was started on oxygen at 9L via NC with adequate oxygen sa turations. He was also started on Zosyn for empiric coverage. His blood and sputum cultures revealed no growth. Leukocytosis was initially found, but resolved within 24 hours of his stay. Pt did have elevated d-dimer, so CTA was performed and was negative. His main concern during his stay was acid reflux, so he was started on protonix and carafate. A villarreal catheter was inserted during stay, so pt will be discharged with flomax. For right lower lobe pneumonia, pt will be sent home with augmentin. Pt felt well and was ready to d/c on 12/12/21. Labs Laboratory Tests 12/10/21 10:15: White Blood Count 15.6H, Neutrophils (%) (Auto) 81H, Neutrophils # (Auto) 12.6H, Creatinine 1.34H, Glucose Level 204H, Alkaline Phosphatase 151H, C-Reactive Protein High Sensitivity 3.61H 12/10/21 11:08: 12/10/21 11:40: 12/10/21 12:00: D-Dimer 5.69H 12/10/21 12:15: 12/10/21 16:00: Urine Specific [place] 1.025H, Urine Protein 1+H, Urine Leukocyte Esterase TRACEH, Urine WBC 5-10H, Urine Bacteria FEWH, Urine Hyaline Casts 0-2H 12/10/21 16:43: Arterial Blood pH 7.31*L, Arterial Blood HCO3 21L, Arterial Blood Base Excess - 4.5L 12/11/21 04:33: White Blood Count 20.0H, Hematocrit 39L, Neutrophils (%) (Auto) 91H, Lymphocytes (%) (Auto) 5L, Neutrophils # (Auto) 18.1H, Chloride Level 111H, Carbon Dioxide Level 18L, Glucose Level 153H, Magnesium Level 1.5L, Total Protein 6.1L, Albumin 3.1L 12/11/21 06:12: Arterial Blood pH 7.33*L, Arterial Blood HCO3 22L, Arterial Blood Base Excess - 3.2L 12/12/21 06:00: Red Blood Count 3.79L, Hemoglobin 11.0L, Hematocrit 33L, Neutrophils (%) (Auto) 89H, Lymphocytes (%) (Auto) 5L, Neutrophils # (Auto) 9.6H, Lymphocytes # (Auto) 0.6L, Chloride Level 110H, Carbon Dioxide Level 19L, Glucose Level 108H, Phosphorus Level 1.8L, Total Protein 6.0L, Albumin 2.9L Radiology Reviewed CXR Impression: 1. Right basilar opacities may be on the basis of pneumonia. Atelectasis could also give this appearance. CTA: IMPRESSION: 1. No CT angiographic evidence of pulmonary embolism. 2. Thoracic aorta demonstrates no dissection or aneurysm. 3. Bilateral lower lobe consolidation with air bronchograms suggestive of pneumonia. There is also hilar and mediastinal adenopathy presumably reactive in nature though follow-up after treatment is recommended. 4. Nonspecific fluid distention of the esophagus. This may relate to reflux. Procedures None. Discharge Physical Examination Allergies: Coded Allergies: codeine (Unverified Adverse Reaction, Mild, HEADACHE, 09/27/20) Vitals & I&Os Vital Signs Date Time Temp Pulse Resp B/P (MAP) Pulse Ox O2 Delivery O2 Flow Rate FiO2 12/12/21 11:11 92 Nasal Cannula 5.00 12/12/21 08:25 37.9 86 18 122/73 (89) 12/10/21 16:24 32 General Appearance: Alert, Oriented X3, Cooperative, No Acute Distress HEENT: Atraumatic, PERRLA Respiratory: Clear to Auscultation Cardiovascular: Regular Rate, Normal S1 Abdominal: Normal Bowel Sounds, Soft Extremities: No Clubbing, No Cyanosis, No Edema Skin: No Rashes, No Breakdown Neuro: Normal Speech, Normal Tone Psych/Mental Status: Mental Status NL, Mood NL Discharge Home Medications Reviewed and agree with Discharge Medication list on patient's Discharge Instruction sheet Condition at Discharge Stable Instructions to Patient/Family Please see electronic discharge instructions given to patient. BARRY INTERIANO MED STUDENT Dec 12, 2021 11:45
[2021-12-12 15:36] VITALS: BP 116/75
[2021-12-12 17:35] VITALS: BP 116/75
== END 2021-12-12 17:35 | disposition home or self-care (01) | DRG 871 ==
LOC: EDUNIT# 10:09 → ER 10:11 → ICU 12:22 → 4TH 12-11 11:19
PROVIDERS: ADMIT Internal Medicine; ATTEND Family Medicine
DX: A41.9 Sepsis, unspecified organism (principal); J18.9 Pneumonia, unspecified organism; J96.01 Acute respiratory failure with hypoxia; I95.9 Hypotension, unspecified; M10.9 Gout, unspecified; I10 Essential (primary) hypertension; E78.00 Pure hypercholesterolemia, unspecified; E83.42 Hypomagnesemia; F17.200 Nicotine dependence, unspecified, uncomplicated; Z20.822 Contact with and (suspected) exposure to COVID-19; K21.9 Gastro-esophageal reflux disease without esophagitis; H40.9 Unspecified glaucoma; H91.90 Unspecified hearing loss, unspecified ear; Z88.5 Allergy status to narcotic agent
CPT/HCPCS: 36415; 36600; 71045; 71275; 80053; 81000; 82805; 83605; 83735; 84100; 84145; 84484; 85007; 85025; 85027; 85379; 85610; 85730; 86141; 87040; 87081; 87088; 87636; 94640; 94664; 94760; 94761

== ENCOUNTER 2022-01-04 12:51 | Observation (INO) | payer MEDICARE ==
[~2022-01-04] VITALS: Ht 177 cm; Wt 73.8 kg
[2022-01-04] VITALS (9 sets, daily range): BP systolic 135–157; BP diastolic 77–97
[~2022-01-04 12:51] MED LIST changes: +ALLO100T PO; +AMOX-355 PO; +DIPH25CA79 PO; +DULO60CA59 PO; +GLUC-219 PO; +LORA10TA7 PO; +TIMO5DRO5 OU
[2022-01-04 13:37] LABS: BASOPHILS # (AUTO) 0.1 10^3/uL (0.0-0.1); BASOPHILS % (AUTO) 1 % (0-10); EOSINOPHILS # (AUTO) 0.3 10^3/uL (0.0-0.3); EOSINOPHILS % (AUTO) 5 % (0-10); HEMATOCRIT 38 % (40-54); HEMOGLOBIN 12.9 g/dL (13.3-17.7); LYMPHOCYTES # (AUTO) 1.2 10^3/uL (1.0-4.0); LYMPHOCYTES % (AUTO) 21 % (12-44); MEAN CORPUSCULAR HEMOGLOBIN 29 pg (25-34); MEAN CORPUSCULAR HGB CONC 34 g/dL (32-36); MEAN CORPUSCULAR VOLUME 85 fL (80-99); MEAN PLATELET VOLUME 9.9 fL (9.0-12.2); MONOCYTES # (AUTO) 0.5 10^3/uL (0.0-1.0); MONOCYTES % (AUTO) 9 % (0-12); NEUTROPHILS # (AUTO) 3.6 10^3/uL (1.8-7.8); NEUTROPHILS % (AUTO) 65 % (42-75); PLATELET COUNT 234 10^3/uL (130-400); WHITE BLOOD COUNT 5.6 10^3/uL (4.3-11.0)
--- NOTE | 2022-01-04 13:51 | Diagnostic Imaging Report ---
Clinical indications: Patient was at [facility] and chest pain started during visit. 3 out of 10 at this time. EXAM: Portable chest x-ray upright view. COMPARISON: Chest x-ray dated 12/11/2021. FINDINGS: Again seen cardiomegaly. There is mild pulmonary vascular prominence centrally. There is increased lung markings throughout both lungs which is also noted on prior study may be related to chronic lung changes. There is no pleural effusion or pneumothorax. There are degenerative spurs involving the spine. IMPRESSION: 1: Again seen cardiomegaly with mild pulmonary vasculature prominence centrally which is not significantly changed in interim. 2: There is no interval lung infiltrate. 3: There is increased lung markings involving both lungs which may related to chronic lung changes. Dictated by: Dictated on workstation # [id number]
[2022-01-04 13:56] LABS: PROTHROMBIN TIME PATIENT 13.9 SEC (12.2-14.7)
[2022-01-04 13:59] LABS: ALBUMIN 3.7 GM/DL (3.2-4.5)
[2022-01-04 14:00] LABS: POTASSIUM 3.8 MMOL/L (3.6-5.0)
[2022-01-04 14:01] LABS: CALCIUM 9.7 MG/DL (8.5-10.1)
[2022-01-04 14:02] LABS: TOTAL PROTEIN 7.1 GM/DL (6.4-8.2)
[2022-01-04 14:04] LABS: BILIRUBIN,TOTAL 0.4 MG/DL (0.1-1.0)
[2022-01-04 14:06] LABS: CREATININE SERUM 0.89 MG/DL (0.60-1.30)
[2022-01-04 14:08] LABS: MAGNESIUM 1.6 MG/DL (1.6-2.4)
--- NOTE | 2022-01-04 15:17 | ED Chest Pain ---
General Chief Complaint: Chest Pain Stated Complaint: CHEST PAINS Nursing Triage Note: PT ARRIVED PER EMS PT WAS AT [facility] AND C/P STARTED DURING VISIT. 04/27 AT THIS X. PT STATES STARTED WHILE WALKING. PT WAS GIVEN 325MG ASPRIN. IS CURRENTLY ON O2 AT 2L PER NC D/T RECENT HX PNEM. History of Present Illness Date Seen by Provider: Jan 04, 2022 Time Seen by Provider: 12:55 Initial Comments Patient is a 66-year-old male who presents to the emergency department via EMS for evaluation of chest pain that has been intermittent for the last several weeks but acutely worsened today while he was at the clinic when he was exerting himself. Patient is currently on home oxygen at 2 L per nasal cannula due to a recent diagnosis of pneumonia. Patient was given 325 mg of aspirin at the clinic. Denies any other history of cardiopulmonary disease. No diaphoresis or dependent edema per patient. Allergies and Home Medications Allergies Coded Allergies: codeine (Unverified Adverse Reaction, Mild, HEADACHE, 09/27/20) Patient Home Medication List Home Medication List Reviewed: Yes Allopurinol (Allopurinol) 100 Mg Tablet, 200 MG PO HS, (Reported) Entered as Reported by: GINA VERNON on 12/11/21 1054 Amlodipine Besylate (Amlodipine Besylate) 5 Mg Tablet, 5 MG PO HS Prescribed by: JIMENA PATEL on 12/12/21 1144 Amoxicillin/Potassium Clav (Augmentin 500-125 Tablet) 500 Mg-125 Mg Tablet, 1 EACH PO BID Prescribed by: JIMENA PATEL on 12/12/21 1144 Atorvastatin Calcium (Atorvastatin Calcium) 20 Mg Tablet, 20 MG PO HS, (Reported) Entered as Reported by: JOSEFINA HERRERA on 09/20/20 1344 Diphenhydramine HCl (Benadryl) 25 Mg Capsule, 25-50 MG PO Q6H PRN for ALLERGY SYMPTOMS, (Reported) Entered as Reported by: GINA VERNON on 12/11/21 1054 Duloxetine HCl (Duloxetine HCl) 60 Mg Capsule.dr, 60 MG PO DAILY, (Reported) Entered as Reported by: GINA VERNON on 12/11/21 1054 Glucosamine/D3/Boswellia Anne (Osteo Bi-Flex Tablet) 1,500 Mg-400 Unit-100 Mg Tablet, 1 EACH PO BID, (Reported) Entered as Reported by: GINA VERNON on 12/11/21 1054 Lisinopril (Lisinopril) 20 Mg Tablet, 20 MG PO HS Prescribed by: JIMENA PATEL on 12/12/21 1144 Loratadine (Loratadine) 10 Mg Tablet, 10 MG PO DAILY Prescribed by: JIMENA PATEL on 12/12/21 1144 Omeprazole (Omeprazole) 40 Mg Capsule.dr, 40 MG PO DAILY, (Reported) Entered as Reported by: JOSEFINA HERRERA on 09/20/20 1344 Tamsulosin HCl (Flomax) 0.4 Mg Cap, 0.4 MG PO DAILY@1800 Prescribed by: JIMENA PATEL on 12/12/21 1144 Timolol Maleate (Timolol Maleate 0.5%) 0.5 % Drops, 1 DROP OU DAILY, (Reported) Entered as Reported by: GINA VERNON on 12/11/21 1054 Review of Systems Review of Systems Constitutional: no symptoms reported EENTM: No Symptoms Reported Respiratory: No Symptoms Reported, SOA With Exertion Cardiovascular: See HPI, Chest Pain Genitourinary: No Symptoms Reported Musculoskeletal: no symptoms reported Skin: no symptoms reported Past Mnqxdjf-Glaukd-Clioph Hx Patient Social History Tobacco Use?: No Substance use?: No Alcohol Use?: No Pt feels they are or have been: No Immunizations Up To Date Influenza Vaccine Up-to-Date: Yes; Up-to-Date First/Initial COVID19 Vaccinat: NONE Second COVID19 Vaccination [place]: NONE Third COVID19 Vaccination Date: NONE Seasonal Allergies Seasonal Allergies: Yes (OTC FLONASE) Past Medical History Surgery/Hospitalization HX: RECENT PNEM, NECK SURG Surgeries: Yes Adenoidectomy, Appendectomy, Tonsillectomy Respiratory: No High Cholesterol, Hypertension Neurological: No Genitourinary: Yes Kidney Stones Gastrointestinal: Yes Gastroesophageal Reflux, Polyps, Hiatal Hernia, Irritable Bowel Musculoskeletal: Yes Arthritis, Gout Endocrine: No HEENT: Yes (SINUS DRAINAGE) Glaucoma Hearing Impairment: Hard of Hearing Cancer: No Psychosocial: Yes Anxiety Integumentary: No Blood Disorders: No Physical Exam Vital Signs Vital Signs - First Documented Capillary Refill : Less Than 3 Seconds Height, Weight, BMI Height: '" Weight: lbs. oz. 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 Norm as Tested Skin: Normal Color, Warm/Dry Progress/Results/Core Measures Results/Orders Lab Results Laboratory Tests Test 01/04/22 13:35 Range/Units White Blood Count 5.6 4.3-11.0 10^3/uL Red Blood Count 4.50 4.30-5.52 10^6/uL Hemoglobin 12.9 L 13.3-17.7 g/dL Hematocrit 38 L 40-54 % Mean Corpuscular Volume 85 80-99 fL Mean Corpuscular Hemoglobin 29 25-34 pg Mean Corpuscular Hemoglobin Concent 34 32-36 g/dL Red Cell Distribution Width 13.4 10.0-14.5 % Platelet Count 234 130-400 10^3/uL Mean Platelet Volume 9.9 9.0-12.2 fL Immature Granulocyte % (Auto) 0 % Neutrophils (%) (Auto) 65 42-75 % Lymphocytes (%) (Auto) 21 12-44 % Monocytes (%) (Auto) 9 0-12 % Eosinophils (%) (Auto) 5 0-10 % Basophils (%) (Auto) 1 0-10 % Neutrophils # (Auto) 3.6 1.8-7.8 10^3/uL Lymphocytes # (Auto) 1.2 1.0-4.0 10^3/uL Monocytes # (Auto) 0.5 0.0-1.0 10^3/uL Eosinophils # (Auto) 0.3 0.0-0.3 10^3/uL Basophils # (Auto) 0.1 0.0-0.1 10^3/uL Immature Granulocyte # (Auto) 0.0 0.0-0.1 10^3/uL Prothrombin Time 13.9 12.2-14.7 SEC INR Comment 1.0 0.8-1.4 Activated Partial Thromboplast Time 28 24-35 SEC Sodium Level 142 135-145 MMOL/L Potassium Level 3.8 3.6-5.0 MMOL/L Chloride Level 102 98-107 MMOL/L Carbon Dioxide Level 31 21-32 MMOL/L Anion Gap 9 5-14 MMOL/L Blood Urea Nitrogen 11 7-18 MG/DL Creatinine 0.89 0.60-1.30 MG/DL Estimat Glomerular Filtration Rate 95 BUN/Creatinine Ratio 12 Glucose Level 93 70-105 MG/DL Calcium Level 9.7 8.5-10.1 MG/DL Corrected Calcium 9.9 8.5-10.1 MG/DL Magnesium Level 1.6 1.6-2.4 MG/DL Total Bilirubin 0.4 0.1-1.0 MG/DL Aspartate Amino Transf (AST/SGOT) 21 5-34 U/L Alanine Aminotransferase (ALT/SGPT) 19 0-55 U/L Alkaline Phosphatase 126 40-136 U/L Troponin I 0.036 H <0.028 NG/ML B-Type Natriuretic Peptide 60.5 <100.0 PG/ML Total Protein 7.1 6.4-8.2 GM/DL Albumin 3.7 3.2-4.5 GM/DL My Orders Orders - 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 Cbc With Automated Diff (01/04/22 13:15) Magnesium (01/04/22 13:15) Chest 1 View, Ap/Pa Only (01/04/22 13:15) Comprehensive Metabolic Panel (01/04/22 13:15) Protime With Inr (01/04/22 13:15) Partial Thromboplastin Time (01/04/22 13:15) O2 (01/04/22 13:15) Monitor-Rhythm Ecg Trace Only (01/04/22 13:15) Ed Iv/Invasive Line Start (01/04/22 13:15) Bnp Olu (01/04/22 13:15) Troponin I [place] (01/04/22 13:15) Ekg Tracing (01/04/22 14:04) Ed Admission (Communication) (01/04/22 15:20) Vital Signs/I&O 01/04/22 01/04/22 12:54 12:54 Pulse 60 Resp 14 B/P (MAP) 143/88 (106) Pulse Ox 95 98 O2 Delivery Nasal Cannula Nasal Cannula O2 Flow Rate 2.00 2.00 Blood Pressure Mean: 106 Progress Progress Note : Progress Note Patient is nontoxic and well-hydrated on exam. He is not hypoxic on room air but does have increased shortness of air subjectively. Patient was placed on his 2 L of home oxygen with improvement in his shortness of air. He states the pain in his chest is very mild. It is mostly located on the left anterior portion of his chest. Denies any exacerbating symptoms other than exertion. Chest x-ray reveals no infiltrate. Laboratory evaluation notable for elevated troponin. Troponin was negative at his visit here in late November. No obvious ischemic changes noted on EKG. Will admit for further evaluation and treatment. Cardiology was consulted who agreed to see the patient in consultation. Hospitalist was called who kindly agreed to admit the patient. Patient was updated on plan of care and understanding verbalized. EKG : EKG Time: 13:06 Rate: 64 Rhythm: Normal Sinus Intervals: Normal ECG Impression: Nonspecific Changes Departure Impression Primary Impression: NSTEMI (non-ST elevated myocardial infarction) Disposition: ADMITTED INPATIENT Condition: Stable Admissions Decision to Admit Reason: Admit from ER (General) Decision to Admit/Date: Jan 04, 2022 Time/Decision to Admit Time: 15:00 Departure-Patient Inst. Referrals: [facility] (PCP) Primary Care Physician LOGAN PADILLA APRN (Family) Primary Care Physician ZACH TORRES APRN Jan 04, 2022 15:17
[2022-01-04] MEDS ORDERED: ENOXAPARIN 100 MG/1 ML (LOVENOX) SYR SC SCH (16:30)
[2022-01-04] MEDS ORDERED: ALPRAZolam 0.25 MG (XANAX) TAB PO PRN (16:30)
[2022-01-04] MEDS ORDERED: ACETAMINOPHEN 325 MG TABLET PO PRN (16:30)
[2022-01-04] MEDS ORDERED: ONDANSETRON 4 MG (ZOFRAN) ORAL DISSOLVE TAB PO PRN (16:30)
[2022-01-04] MEDS ORDERED: CALCIUM CARBONATE 500 MG (TUMS) TAB.CHEW PO PRN (16:30)
[2022-01-04] MEDS ORDERED: polyethylene glycoL POWDER 17 GM (MIRALAX) PACK PO PRN (16:30)
[2022-01-04] MEDS ORDERED: MILK OF MAGNESIA 400 MG/5 ML 30 ML UDC PO PRN (16:30)
[2022-01-04] MEDS ORDERED: LACTULOSE SYRUP 10GM/15ML (ENULOSE) 30ML UDC PO PRN (16:30)
[2022-01-04] MEDS ORDERED: ANTACID SUSP 30 ML UDC (MYLANTA) PO PRN (16:30)
[2022-01-04] MEDS ORDERED: morphine INJ 4 MG/ML 1 ML (VIAL/SYRINGE) IV PRN (16:30)
[2022-01-04] MEDS ORDERED: ONDANSETRON 4 MG/2 ML (SDV) Z0FRAN IV PRN (16:30)
[2022-01-04] MEDS ORDERED: MELATONIN 3 MG TABLET PO PRN (16:30)
[2022-01-04] MEDS ORDERED: diphenhydrAMINE 25 MG TAB (BENADRYL) PO PRN (16:30)
[2022-01-04] MEDS ORDERED: diphenhydrAMINE 50 MG/ML INJ (BENADRYL) IVP PRN (16:30)
[2022-01-04] MEDS ORDERED: BISACODYL 10 MG SUPP (DULCOLAX) PR PRN (16:30)
--- NOTE | 2022-01-04 16:30 | Consultation-Cardiology ---
HPI-Cardiology Cardiology Consultation Date of Consultation 01/04/22 Date of Admission Time Seen by Provider: 16:28 Indication: Chest pain HPI 66 years old gentleman with history of hypertension, hyperlipidemia. Has been having chest pain for the past year. On and off dull in nature in the epigastric and retrosternal area. No shortness of breath. No palpitation, reporting that the pain has been worsening recently, [facility] and he was sent to the emergency room. Did not require any nitroglycerin. Reporting improvement in his chest pain. He had mild troponin elevation. Home Medications & Allergies Allergies: Coded Allergies: codeine (Unverified Adverse Reaction, Mild, HEADACHE, 09/27/20) Home Medication List Reviewed: Yes IYQ-Zyeuvp-Vlukix Hx Patient Social History Marital Status: Employed/Student: employed 2[employer] Smoke Exposure: No Recent Hopitalizations: No Have you traveled recently?: No Alcohol Use?: No Past Medical History Discussed below Family Medical History Significant Family History: No Pertinent Family Hx Family Medical Hx Noncontributory Review of Systems-General Review of Systems Constitutional: no symptoms reported, see HPI EENTM: see HPI, no symptoms reported Respiratory: no symptoms reported, see HPI Cardiovascular: see HPI, chest pain; No edema, No Hx of Intervention, No pa lpitations, No syncope, No vascular heart diseas, No other Gastrointestinal: no symptoms reported, see HPI Genitourinary: no symptoms reported, see HPI Musculoskeletal: no symptoms reported, see HPI Skin: no symptoms reported, see HPI Psychiatric/Neurological: No Symptoms Reported, See HPI Reviewed Test Results Reviewed Test Results Lab Laboratory Tests Test 01/04/22 13:35 Range/Units White Blood Count 5.6 4.3-11.0 10^3/uL Red Blood Count 4.50 4.30-5.52 10^6/uL Hemoglobin 12.9 L 13.3-17.7 g/dL Hematocrit 38 L 40-54 % Mean Corpuscular Volume 85 80-99 fL Mean Corpuscular Hemoglobin 29 25-34 pg Mean Corpuscular Hemoglobin Concent 34 32-36 g/dL Red Cell Distribution Width 13.4 10.0-14.5 % Platelet Count 234 130-400 10^3/uL Mean Platelet Volume 9.9 9.0-12.2 fL Immature Granulocyte % (Auto) 0 % Neutrophils (%) (Auto) 65 42-75 % Lymphocytes (%) (Auto) 21 12-44 % Monocytes (%) (Auto) 9 0-12 % Eosinophils (%) (Auto) 5 0-10 % Basophils (%) (Auto) 1 0-10 % Neutrophils # (Auto) 3.6 1.8-7.8 10^3/uL Lymphocytes # (Auto) 1.2 1.0-4.0 10^3/uL Monocytes # (Auto) 0.5 0.0-1.0 10^3/uL Eosinophils # (Auto) 0.3 0.0-0.3 10^3/uL Basophils # (Auto) 0.1 0.0-0.1 10^3/uL Immature Granulocyte # (Auto) 0.0 0.0-0.1 10^3/uL Prothrombin Time 13.9 12.2-14.7 SEC INR Comment 1.0 0.8-1.4 Activated Partial Thromboplast Time 28 24-35 SEC Sodium Level 142 135-145 MMOL/L Potassium Level 3.8 3.6-5.0 MMOL/L Chloride Level 102 98-107 MMOL/L Carbon Dioxide Level 31 21-32 MMOL/L Anion Gap 9 5-14 MMOL/L Blood Urea Nitrogen 11 7-18 MG/DL Creatinine 0.89 0.60-1.30 MG/DL Estimat Glomerular Filtration Rate 95 BUN/Creatinine Ratio 12 Glucose Level 93 70-105 MG/DL Calcium Level 9.7 8.5-10.1 MG/DL Corrected Calcium 9.9 8.5-10.1 MG/DL Magnesium Level 1.6 1.6-2.4 MG/DL Total Bilirubin 0.4 0.1-1.0 MG/DL Aspartate Amino Transf (AST/SGOT) 21 5-34 U/L Alanine Aminotransferase (ALT/SGPT) 19 0-55 U/L Alkaline Phosphatase 126 40-136 U/L Troponin I 0.036 H <0.028 NG/ML B-Type Natriuretic Peptide 60.5 <100.0 PG/ML Total Protein 7.1 6.4-8.2 GM/DL Albumin 3.7 3.2-4.5 GM/DL Physical Exam Physical Exam Vital Signs Vital Signs - First Documented Capillary Refill : Less Than 3 Seconds Height, Weight, BMI Height: '" Weight: lbs. oz. kg; 23.00 BMI Method:Stated General Appearance: No Apparent Distress, WD/WN Eyes: Bilateral Eye Normal Inspection, Bilateral Eye PERRL, Bilateral Eye EOMI HEENT: PERRL/EOMI, TMs Normal, Normal ENT Inspection, Pharynx Normal, Moist Mucous Membranes Neck: Full Range of Motion, Normal Inspection, Non Tender, Supple, Carotid Bruit Respiratory: Chest Non Tender, Normal Breath Sounds, No Accessory Muscle Use, No Respiratory Distress Cardiovascular: Regular Rate, Rhythm, No Edema, No Gallop, No JVD, No Murmur, Normal Peripheral Pulses Gastrointestinal: Normal Bowel Sounds, No Organomegaly, No Pulsatile Mass, Non Tender, Soft Back: Normal Inspection, No CVA Tenderness, No Vertebral Tenderness Extremity: Normal Capillary Refill, Normal Inspection, Normal Range of Motion, Non Tender, No Calf Tenderness, No Pedal Edema Neurologic/Psychiatric: Alert, Oriented x3, No Motor/Sensory Deficits, Normal Mood/Affect Skin: Normal Color, Warm/Dry Lymphatic: No Adenopathy A/P-Cardiology Admission Diagnosis Chest pain Hypertension Hyperlipidemia Peptic ulcer disease Assessment/Plan Chest pain nonspecific etiology, atypical in presentation, has been waxing and waning for about a year. EKG did not show any acute changes Troponin is mildly elevated. Will admit on aspirin and Lovenox, monitor troponin trend overnight. Hypertension, restart home medication monitor blood pressure Hyperlipidemia, monitor lipids Peptic ulcer disease, gastroesophageal reflux disease, restart PPI History of gouty arthritis, arthritic pain. Clinical Quality Measures AMI/AHF: ASA po Prior to arrival: Yes (325MG) RADHA RICHARDSON MD Jan 04, 2022 16:30
[2022-01-04] MEDS ORDERED: RT-ALBUTEROL SULF 2.5 MG/3 ML PRE-MIX VIAL INH PRN (17:00)
[2022-01-04] MEDS: ENOXAPARIN 80 MG/0.8 ML (LOVENOX) SYR SC SCH (17:04)
[2022-01-04] MEDS: PANTOPRAZOLE 40 MG (PROTONIX) TAB PO SCH (17:04)
[2022-01-04] MEDS: DOCUSATE SODIUM 100 MG (COLACE) CAP PO SCH (20:04)
[2022-01-04] MEDS: SENNOSIDES 8.6 MG (SENOKOT) TAB PO SCH (20:04)
[2022-01-05] VITALS: BP 148/95
[2022-01-05 04:30] VITALS: BP 138/91
[2022-01-05] MEDS: ENOXAPARIN 80 MG/0.8 ML (LOVENOX) SYR SC SCH (06:01)
[2022-01-05 06:13] LABS: BASOPHILS % (AUTO) 1 % (0-10); EOSINOPHILS # (AUTO) 0.3 10^3/uL (0.0-0.3); EOSINOPHILS % (AUTO) 5 % (0-10); HEMATOCRIT 38 % (40-54); LYMPHOCYTES # (AUTO) 1.4 10^3/uL (1.0-4.0); LYMPHOCYTES % (AUTO) 23 % (12-44); MEAN CORPUSCULAR HEMOGLOBIN 29 pg (25-34); MEAN CORPUSCULAR HGB CONC 34 g/dL (32-36); MEAN CORPUSCULAR VOLUME 85 fL (80-99); MEAN PLATELET VOLUME 9.7 fL (9.0-12.2); MONOCYTES # (AUTO) 0.5 10^3/uL (0.0-1.0); MONOCYTES % (AUTO) 9 % (0-12); NEUTROPHILS # (AUTO) 3.7 10^3/uL (1.8-7.8); NEUTROPHILS % (AUTO) 63 % (42-75); PLATELET COUNT 202 10^3/uL (130-400); WHITE BLOOD COUNT 5.9 10^3/uL (4.3-11.0)
[2022-01-05 06:15] LABS: SMEAR SCAN COMMENT YES
[2022-01-05 06:20] LABS: ALBUMIN 3.5 GM/DL (3.2-4.5); BILIRUBIN,TOTAL 0.4 MG/DL (0.1-1.0); CREATININE SERUM 0.85 MG/DL (0.60-1.30); POTASSIUM 3.6 MMOL/L (3.6-5.0); TOTAL PROTEIN 6.7 GM/DL (6.4-8.2)
[2022-01-05 07:45] VITALS: BP 145/93
[2022-01-05] MEDS ORDERED: HEParin (CATH LAB) 2,000 ML IV ONE (08:02)
[2022-01-05] MEDS ORDERED: LIDOCAINE 1% INJ 30 ML (XYLOCAINE) VIAL ONE (08:02)
[2022-01-05] MEDS ORDERED: NS IV 1000 ML 1,000 ML IV SCH (08:15)
--- NOTE | 2022-01-05 09:31 | Cardiology Progress Note ---
Subjective Date Seen by Provider: Jan 05, 2022 Time Seen by Provider: 09:30 Subjective/Events-last exam Patient was seen at bedside, laying down comfortably, feeling better today. Review of Systems General: No Chills, No Night Sweats, No Fatigue, No Malaise, No Appetite, No Other HEENT: No Head Aches, No Visual Changes, No Eye Pain, No Ear Pain, No Dysphasia, No Sinus Congestion, No Post Nasal Drip, No Sore Throat, No Other Pulmonary: No Dyspnea, No Cough, No Pleuritic Chest Pain, No Other Cardiovascular: No: Chest Pain, Palpitations, Orthopnea, Paroxysmal Noc. Dyspnea, Edema, Lt Headedness, Other Objective-Cardiology Exam Last Set of Vital Signs Vital Signs 01/05/22 01/05/22 01/05/22 11:37 11:52 12:52 Temp 36.6 Pulse 77 Resp 16 B/P (MAP) 145/97 (113) Pulse Ox 96 O2 Delivery Nasal Cannula O2 Flow Rate 2.00 I&O Intake and Output 01/05/22 00:00 Intake Total 200 ml Balance 200 ml Intake Oral 200 ml # Voids 2 Daily Weight Change No General: Alert, Oriented X3, Cooperative HEENT: Atraumatic, PERRLA Neck: Supple, No JVD, No Thyromegaly Lungs: Clear to Auscultation, Normal Air Movement Heart: Regular Rate, Normal S1, Normal S2, No Murmurs Abdomen: Normal Bowel Sounds, Soft, No Tenderness, No Hepatosplenomegaly, No Masses Extremities: No Clubbing, No Cyanosis, No Edema, Normal Pulses, No Tenderness/Swelling Skin: No Rashes, No Breakdown, No Significant Lesion Neuro: Normal Gait, Normal Speech, Strength at 5/5 X4 Ext, Normal Tone, Sensati on Intact Psych/Mental Status: Mental Status NL, Mood NL Results Lab Laboratory Tests 01/05/22 05:37 A/P-Cardiology Admission Diagnosis Chest pain Hypertension Hyperlipidemia Peptic ulcer disease Assessment/Plan Chest pain nonspecific etiology, atypical in presentation, has been waxing and waning for about a year. Persistent elevation in troponin. Discussed the management plan with the patient, due to the persistent elevation in troponin and the recurrent chest pain. I am planning to proceed with cardiac catheterization possible PTCA Hypertension, restart home medication monitor blood pressure Hyperlipidemia, monitor lipids Peptic ulcer disease, gastroesophageal reflux disease, restart PPI History of gouty arthritis, arthritic pain. Addendum on January 05, 2022 at 1400 Cardiac catheterization was carried out showing mild to moderate coronary artery disease nonobstructive disease. Patient did not have myocardial infarction, probably type II ME secondary to hypoxemia and increased mismatch. Patient has been using oxygen at home. Okay for discharge and follow-up as an outpatient RADHA RICHARDSON MD Jan 05, 2022 09:31
--- NOTE | 2022-01-05 09:32 | Cardiac Procedure Note-CS/ASA ---
Pre-Procedure Note Pre-Op Procedure Note Date of Available H&P: Jan 05, 2022 Date H&P Reviewed: Jan 05, 2022 Time H&P Reviewed: 09:32 History & Physical: H&P Reviewed, Patient Examed, No changes noted Pre-Operative Diagnosis: CP Conscious Sedation Pre-Proced Time 09:32 ASA Score 3 For ASA 3 and 4: Consider anesthesia and medical clearance. Also, for patients with a history of failed moderate sedation consider anesthesia. Airway Lungs Heart ASA score ASA 1: a normal healthy patient ASA 2: a patient with a mild systemic disease (mid diabetes, controlled hypertension, obesity ASA 3: a patient with a severe systemic disease that limits activity (angina, COPD, prior Myocardial infarction) ASA 4: a patient with an incapacitating disease that is a constant threat to life (CHF, renal failure) ASA 5: a moribund patient not expected to survive 24 hrs. (ruptured aneurysm) ASA 6: a declared brain- patient whose organs are being harvested. For emergent operations, add the letter E after the classification Mallampati Classification Grade 3 Sedation Plan Analgesia, Amnesia, Plan communicated to team members, Discussed options with patient/fam, Discussed risks with patient/fam The patient is an appropriate candidate to undergo the planned procedure, sedation, and anesthesia. The patient immediately re-assessed prior to indication. RADHA RICHARDSON MD Jan 05, 2022 09:32
[2022-01-05 11:37] VITALS: BP 145/97
--- NOTE | 2022-01-05 13:11 | Short Stay Summary-Hospitalist ---
LARSBRIANNE 01/05/22 1311: History of Present Illness HPI/Chief Complaint Patient is a 66-year-old male with a history of gout, HTN, and HLD who presented to the ED on 01/04 with chief complaint of chest pain. The patient was previously admittedon 12/10 for sepsis and pneumonia, his condition improved and he was discharged on 12/12. A few days ago he started having a slight cough for which he was seen at the [facility]. While he was getting an EKG, he began to feel a sensation of tightness in his chest that he described as someone squeezing his heart. He states that he has had this sensation a couple of times in the past, usually while laying down in bed but that this has only happened a few times. The EKG at [facility] showed that he was having an NSTEMI and he was brought to [facility]. EKG on admission showed sinus rhythm with possible right ventricular conduction delay, left anterior fascicular block LVH, and nonspecific T-wave abnormality. EKG today showed sinus rhythm with 1st degree AV block, left axis deviation, LVH, and incomplete RBBB. Troponin was elevated on admission at 0.036, measured later at 0.048, and today is 0.037. A lipid panel showed triglycerides to be elevated at 221, VLDL to be elevated at 44, and HDL to be low at 28. The patient reports that he is feeling good overall today, and that he had no sensations of tightness in his chest since admission and has no other complaints. He is undergoing cardiac catheterization with possible angioplasty today. Source: patient, RN/MD, RN notes reviewed, old records Exam Limitations: no limitations Date Seen 01/05/22 Time Seen by a Provider: 11:10 Attending Physician Asya Blevins Aprn PCP Admitting Physician: Adele Bella DO Attending Physician: Adele Bella DO Referring Physician Date of Admission Jan 04, 2022 at 15:21 Home Medications & Allergies Home Medications Reviewed patient Home Medication Reconciliation performed by pharmacy medication reconciliations machine maintenance technician and/or nursing. Patients Allergies have been reviewed. Allergies Allergies Coded Allergies codeine (Unverified Adverse Reaction, Mild, HEADACHE, 09/27/20) Past Medical/Social/Family Hx Patient Social History Marrital Status: Employed/Student: employed Tobacco Use?: No Smoking Status: Never a Smoker Smokeless Tobacco Frequency: Never a User Use of E-Cig and/or Vaping dev: No Substance use?: No Alcohol Use?: No Pt stated abuse/neglect: No Immunizations Up To Date Influenza Vaccine Up-to-Date: Yes; Up-to-Date First/Initial COVID19 Vaccinat: NONE Second COVID19 Vaccination [place]: NONE Current Status Advance Directives: No Advance Directive Location: Home Communicates: Verbally Primary Language: Mexican Preferred Spoken Language: Mexican Is interpretation needed?: No Implanted or Applied Medical D: None Review of Systems Constitutional: No chills, No fever EENTM: No ear pain, No blurred vision, No eye pain, No vision loss Respiratory: No cough, No dyspnea on exertion, No short of breath Cardiovascular: chest pain (has not felt since admission); No edema Gastrointestinal: No abdominal pain, No constipation, No diarrhea, No nausea, No vomiting Genitourinary: No dysuria, No frequency, No hematuria Musculoskeletal: No back pain; gout Skin: No change in color, No change in hair/nails Psychiatric/Neurological: Denies Numbness, Denies Tremors, Denies Weakness Physical Exam Physical Exam Vital Signs Vital Signs - First Documented 01/04/22 16:45 Temp 36.2 Capillary Refill : Less Than 3 Seconds Height, Weight, BMI Height: '" Weight: lbs. oz. kg; 23.93 BMI Method:Stated General Appearance: No Apparent Distress, WD/WN Eyes: Bilateral Eye Normal Inspection, Bilateral Eye PERRL, Bilateral Eye EOMI HEENT: PERRL/EOMI Neck: Non Tender, Supple Respiratory: Chest Non Tender, Lungs Clear, Normal Breath Sounds, No Accessory Muscle Use Cardiovascular: Regular Rate, Rhythm, No Edema, No Murmur Gastrointestinal: No Pulsatile Mass, Non Tender, Soft Rectal: Deferred Back: No Vertebral Tenderness Extremity: Normal Capillary Refill, Non Tender, No Calf Tenderness, No Pedal Edema Neurologic/Psychiatric: Alert, Oriented x3 Skin: Normal Color, Warm/Dry Lymphatic: No Adenopathy Results Results/Procedures Labs Laboratory Tests 01/04/22 13:35 01/05/22 05:37 Patient resulted labs reviewed. Short Stay Diagnosis Discharge Diagnosis-Short Stay Admission Diagnosis NSTEMI Final Discharge Diagnosis NSTEMI Conclusion Plan NSTEMI Chest pain HTN HLD Gout GERD PUD Anxiety Irritable bowel Cardiology consulted Undergoing cardiac catheterization with possible angioplasty today On protonix On aspirin Lovenox for DVT prophylaxis Clinical Quality Measures AMI/AHF: ASA po Prior to arrival: Yes (325MG) ADELE BELLA DO 01/06/22 0601: Past Medical/Social/Family Hx Patient Social History Marrital Status: single Employed/Student: unemployed Smoking Status: Current Everyday Smoker Physical Exam Physical Exam General Appearance: No Apparent Distress, WD/WN, Chronically ill Respiratory: Lungs Clear, Normal Breath Sounds Cardiovascular: Regular Rate, Rhythm Neurologic/Psychiatric: Alert, Oriented x3, No Motor/Sensory Deficits, Normal Mood/Affect Supervisory-Addendum Brief Verification & Attestation Participated in pt care: history, MDM, physical Personally performed: exam, history, MDM, supervision of care Care discussed with: Medical Student Procedures: n/a Results interpretation: Verified all documentation Verification and Attestation of Medical Student E/M Service A medical student performed and documented this service in my presence. I reviewed and verified all information documented by the medical student and made modifications to such information, when appropriate. I personally performed the physical exam and medical decision making. Adele Bella, Jan 06, 2022,06:01 BRIANNE SOUSA Jan 05, 2022 13:11 ADELE BELLA DO Jan 06, 2022 06:01
[2022-01-05] MEDS ORDERED: fentaNYL INJ 100 MCG/2 ML AMP ONE (13:31)
[2022-01-05] MEDS ORDERED: HEParin 1000 UNIT/ML (10ML VIAL) FOR BOLUS ONE (13:31)
[2022-01-05] MEDS ORDERED: VERAPAMIL 5 MG/2 ML (CALAN) VIAL IV ONE (13:31)
[2022-01-05] MEDS ORDERED: NITRO DRIP 25000 MCG/D5W 250 ML IV ONE (13:31)
[2022-01-05] MEDS ORDERED: MIDAZOLAM 5 MG/5 ML (VERSED) VIAL ONE (13:31)
[2022-01-05] MEDS ORDERED: ASPI81TA64 PO (14:05)
--- NOTE | 2022-01-05 14:05 | Discharge Inst-Post CATH ---
Discharge Inst-CATH/EP Problems Reviewed?: Yes Post Cardiac Cath/EP D/C Inst Follow Up/Plan Appointment with Dr. Cristobal's office in 2 to 4 weeks <b>CARDIAC CATH/EP PROCEDURE DISCHARGE INSTRUCTIONS</b> ACTIVITY * Go Home directly and rest. * Limit activity of the leg (or wrist if it was used) for 7 days including aer obics, swimming, jogging, bicycling, etc. * Restrict stair-climbing for 7 days if possible, if not, climb up with your non-cath leg, then bring together on the same step. * Avoid lifting, pushing, pulling or excessive movement of the affected extremi ty for 7 days. * Customary sexual activity may be resumed after 2 days-use caution not to use a position that strains or causes pain to the affected extremity. * No driving for 24 hours. * NO SMOKING. * Avoid straining for bowel movements for 7 days. * Gentle walking on level ground is allowed. * Returning to work will depend on the type of procedure and the results. Your doctor will discuss this with you. CALL YOUR DOCTOR FOR ANY OF THE FOLLOWING: *If bleeding from the puncture site occurs- Apply gentle pressure to site with clean cloth and call your doctor or EMS. * If a knot or lump forms under the skin, increases in size, or causes pain. * If bruising appears to be worsening or moving further down your leg instead of disappearing. * Temperature above 101 F. CARE OF YOUR GROIN INCISION; * Bruising or purple discoloration of the skin near the puncture site is common. * You may shower only, no bathtub bathing for 5 days. Be careful to avoid slipping as your leg may feel stiff. * If a closure device was used on your femoral artery, please see the attached guide regarding care of the device and your leg. * Leave dressing on FOR 24 hours. CARE OF YOUR WRIST INCISION; * Bruising or purple discoloration of the skin near the puncture site is common. * You may shower. * DO NOT submerge wrist. * Leave dressing on FOR 24 hours. RADHA CRISTOBAL MD Jan 05, 2022 14:05
--- NOTE | 2022-01-05 14:09 | Cardiac Cath Report ---
Cardiac Cath Report Physician (s)/Transportation Logistics Internship (s) Physician RADHA RICHARDSON MD Pre-Procedure Diagnosis Pre-Procedure Diagnosis: CP Post-Procedure Note Procedure Start Date: Jan 05, 2022 Name of Procedure: Left heart catheterization Findings/Procedure Note PROCEDURE NOTE: 66 years old gentleman with history of hypertension, hyperlipidemia, admitted with recurrent chest pain, had mild elevation in troponin level, cardiac catheterization was advised. After explaining the procedure to the patient, all pros and cons were explained, all questions were answered. The patient signed the consent and then he was placed on the cardiac catheterization laboratory. Groin was prepped SL fashion local anesthesia was used. Sheath placed in the right radial artery, Randlett catheter was advanced to the left ventricular cavity, pressure was measured, pullback LV to aorta was done, engage the right and left coronary system, angiogram was done. At the end of the procedure the sheath was removed. Vascular band was used FINDINGS: Hemodynamics LV 101/21, end-diastolic pressure of 21 Aorta 101/78 mean of 88 ANATOMY: Left Main is free of obstructive disease Left Anterior Descending is free of obstructive disease Left Circumflex is free of obstructive disease Right Coronary Artery has superior origin, slightly anomalous origin, slight tortuosity in the right coronary artery that is codominant with the circumflex artery with no obstructive disease LV Gram was not done, pressure was measured CONCLUSION: 1. 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 2. Mildly elevated left ventricular end-diastolic pressure DISCUSSION AND RECOMMENDATION: Medical therapy is recommended patient did not have myocardial infarction based on the angiogram findings Anesthesia Type: Conscious Sedation Estimated blood loss (mL): 10 ml Contrast Amount: 46 ml Total Radiation Dose: 248 mGy Post-Procedure Diagnosis Post-operative diagnosis: Type II myocardial infarction Coronary artery disease Hypertension Hyperlipidemia RADHA RICHARDSON MD Jan 05, 2022 14:09
[2022-01-05] MEDS: APIXABAN 5 MG (ELIQUIS) TABLET PO SCH ×2 (15:51→21:00)
[2022-01-05] MEDS: meTOprolol TARTRATE 25 MG (LOPRESSOR) TABLET PO SCH ×2 (15:51→21:00)
[2022-01-05 16:00] VITALS: BP 103/80
[2022-01-05] MEDS: DOCUSATE SODIUM 100 MG (COLACE) CAP PO SCH ×3 (16:16→21:00)
[2022-01-05] MEDS: ASPIRIN 81 MG CHEW (CHILDREN'S ASA) PO SCH (16:16)
[2022-01-05] MEDS: PANTOPRAZOLE 40 MG (PROTONIX) TAB PO SCH (16:17)
[2022-01-05] MEDS: SENNOSIDES 8.6 MG (SENOKOT) TAB PO SCH ×3 (16:17→21:00)
[2022-01-05] MEDS: NS IV 1000 ML 1,000 ML IV SCH ×3 (16:25→20:08)
[2022-01-05 19:42] VITALS: BP 112/82
[2022-01-06] VITALS: BP 128/90
[2022-01-06] MEDS: NS IV 1000 ML 1,000 ML IV SCH ×3 (00:15→08:29)
[2022-01-06 04:00] VITALS: BP 124/77
[2022-01-06 05:39] LABS: BASOPHILS % (AUTO) 1 % (0-10); EOSINOPHILS # (AUTO) 0.2 10^3/uL (0.0-0.3); EOSINOPHILS % (AUTO) 3 % (0-10); HEMATOCRIT 40 % (40-54); HEMOGLOBIN 13.6 g/dL (13.3-17.7); LYMPHOCYTES # (AUTO) 1.2 10^3/uL (1.0-4.0); LYMPHOCYTES % (AUTO) 19 % (12-44); MEAN CORPUSCULAR HEMOGLOBIN 29 pg (25-34); MEAN CORPUSCULAR HGB CONC 34 g/dL (32-36); MEAN CORPUSCULAR VOLUME 86 fL (80-99); MEAN PLATELET VOLUME 9.4 fL (9.0-12.2); MONOCYTES # (AUTO) 0.5 10^3/uL (0.0-1.0); MONOCYTES % (AUTO) 8 % (0-12); NEUTROPHILS # (AUTO) 4.2 10^3/uL (1.8-7.8); NEUTROPHILS % (AUTO) 69 % (42-75); PLATELET COUNT 224 10^3/uL (130-400); WHITE BLOOD COUNT 6.1 10^3/uL (4.3-11.0)
[2022-01-06 05:45] LABS: ALBUMIN 3.5 GM/DL (3.2-4.5); POTASSIUM 3.6 MMOL/L (3.6-5.0)
[2022-01-06 05:46] LABS: CALCIUM 9.4 MG/DL (8.5-10.1)
[2022-01-06 05:47] LABS: TOTAL PROTEIN 6.8 GM/DL (6.4-8.2)
[2022-01-06 05:49] LABS: BILIRUBIN,TOTAL 0.5 MG/DL (0.1-1.0)
[2022-01-06 05:51] LABS: CREATININE SERUM 0.85 MG/DL (0.60-1.30)
[2022-01-06 08:07] VITALS: BP 143/85
[2022-01-06] MEDS: meTOprolol TARTRATE 25 MG (LOPRESSOR) TABLET PO SCH (08:28)
[2022-01-06] MEDS: SENNOSIDES 8.6 MG (SENOKOT) TAB PO SCH (08:28)
[2022-01-06] MEDS: DOCUSATE SODIUM 100 MG (COLACE) CAP PO SCH (08:28)
[2022-01-06] MEDS: PANTOPRAZOLE 40 MG (PROTONIX) TAB PO SCH (08:28)
[2022-01-06] MEDS: APIXABAN 5 MG (ELIQUIS) TABLET PO SCH (08:29)
[2022-01-06] MEDS: ASPIRIN 81 MG CHEW (CHILDREN'S ASA) PO SCH (08:29)
--- NOTE | 2022-01-06 08:34 | Cardiology Progress Note ---
Subjective Date Seen by Provider: Jan 06, 2022 Time Seen by Provider: 08:33 Subjective/Events-last exam Patient was seen at bedside, laying down comfortably, denied any chest pain Review of Systems General: No Chills, No Night Sweats, No Fatigue, No Malaise, No Appetite, No Other HEENT: No Head Aches, No Visual Changes, No Eye Pain, No Ear Pain, No Dysphasia, No Sinus Congestion, No Post Nasal Drip, No Sore Throat, No Other Pulmonary: No Dyspnea, No Cough, No Pleuritic Chest Pain, No Other Cardiovascular: No: Chest Pain, Palpitations, Orthopnea, Paroxysmal Noc. Dyspnea, Edema, Lt Headedness, Other Objective-Cardiology Exam Last Set of Vital Signs Vital Signs 01/06/22 08:07 Temp 36.9 Pulse 75 Resp 18 B/P (MAP) 143/85 (104) Pulse Ox 95 O2 Delivery Nasal Cannula O2 Flow Rate 3.00 I&O Intake and Output 01/06/22 00:00 Intake Total 240 ml Balance 240 ml Intake Oral 240 ml # Voids 4 General: Alert, Oriented X3, Cooperative HEENT: Atraumatic, PERRLA Neck: Supple, No JVD, No Thyromegaly Lungs: Clear to Auscultation, Normal Air Movement Heart: Regular Rate, Normal S1, Normal S2, No Murmurs Abdomen: Normal Bowel Sounds, Soft, No Tenderness, No Hepatosplenomegaly, No Masses Extremities: No Clubbing, No Cyanosis, No Edema, Normal Pulses, No Tenderness/Swelling Skin: No Rashes, No Breakdown, No Significant Lesion Neuro: Normal Gait, Normal Speech, Strength at 5/5 X4 Ext, Normal Tone, Sensation Intact Psych/Mental Status: Mental Status NL, Mood NL Results Lab Laboratory Tests 01/06/22 05:20 A/P-Cardiology Admission Diagnosis Chest pain Hypertension Hyperlipidemia Peptic ulcer disease Assessment/Plan Chest pain nonspecific etiology, atypical in presentation, has been waxing and waning for about a year. Type II myocardial infarction probably secondary to paroxysmal atrial fibrillation Cardiac catheterization showed nonobstructive disease Paroxysmal atrial fibrillation, had an episode of atrial fibrillation with controlled rate while on telemetry. Starting on Eliquis, I will evaluate 2D echocardiogram then will consider starting flecainide Coronary artery disease status post cardiac catheterization showing mild to moderate disease nonobstructive disease. Hypertension, restart home medication monitor blood pressure Hyperlipidemia, monitor lipids Peptic ulcer disease, gastroesophageal reflux disease, restart PPI History of gouty arthritis, arthritic pain. Okay for discharge after 2D echo is done RADHA RICHARDSON MD Jan 06, 2022 08:34
[2022-01-06] MEDS ORDERED: METO-351 PO (08:35)
[2022-01-06] MEDS ORDERED: METO-333 PO (10:33)
[2022-01-06] MEDS ORDERED: APIX5TAB PO (10:33)
[2022-01-06 14:37] VITALS: BP 143/85
--- NOTE | 2022-01-06 17:12 | Discharge Summary ---
Discharge Summary Hospital Course Was the Problem List Reviewed?: Yes Problems/Dx: (1) NSTEMI (non-ST elevated myocardial infarction) Status: Acute (2) New onset atrial fibrillation Status: Acute (3) Aortic valve sclerosis Status: Acute Hospital Course Date of Admission: Jan 04, 2022 at 15:21 Admission Diagnosis : NSTEMI Family Physician/Provider: Asya Blevins Aprn Date of Discharge: 01/06/22 Discharge Diagnosis: NSTEMI, new onset AFib, aortic valve sclerosis Hospital Course: Luis Daniel Larson is a 66 year old male who presented with chest pain and was admitted with NSTEMI. His troponin levels were mildly elevated. Cardiology was c onsulted and assisted with his care. He underwent left heart catheterization which showed mild coronary artery disease with non-obstructive disease. He subsequently was found to be in new onset atrial fibrillation. He was started on Metoprolol and Eliquis. He had an echo with normal EF and aortic valve sclerosis. He should follow up with his PCP and Cardiology as scheduled. He was discharged home in stable condition. Labs and Pending Lab Test: Laboratory Tests 01/05/22 19:28: Troponin I 0.066H 01/06/22 05:20: White Blood Count 6.1, Red Blood Count 4.70, Hemoglobin 13.6, Hematocrit 40, Mean Corpuscular Volume 86, Mean Corpuscular Hemoglobin 29, Mean Corpuscular Hemoglobin Concent 34, Red Cell Distribution Width 13.3, Platelet Count 224, Mean Platelet Volume 9.4, Immature Granulocyte % (Auto) 0, Neutrophils (%) (Auto) 69, Lymphocytes (%) (Auto) 19, Monocytes (%) (Auto) 8, Eosinophils (%) (Auto) 3, Basophils (%) (Auto) 1, Neutrophils # (Auto) 4.2, Lymphocytes # (Auto) 1.2, Monocytes # (Auto) 0.5, Eosinophils # (Auto) 0.2, Basophils # (Auto) 0.0, Immature Granulocyte # (Auto) 0.0, Sodium Level 142, Potassium Level 3.6, Chloride Level 104, Carbon Dioxide Level 26, Anion Gap 12, Blood Urea Nitrogen 12, Creatinine 0.85, Estimat Glomerular Filtration Rate 96, BUN/Creatinine Ratio 14, Glucose Level 85, Calcium Level 9.4, Corrected Calcium 9.8, Total Bilirubin 0.5, Aspartate Amino Transf (AST/SGOT) 21, Alanine Aminotransferase (ALT/SGPT) 17, Alkaline Phosphatase 132, Total Protein 6.8, Albumin 3.5 Home Meds Active Metoprolol Tartrate 25 Mg Tablet 25 Mg PO BID 30 Days Eliquis (Apixaban) 5 Mg Tablet 5 Mg PO BID 30 Days Children's Aspirin (Aspirin) 81 Mg Tab.chew 81 Mg PO DAILY Augmentin 500-125 Tablet (Amoxicillin/Potassium Clav) 500 Mg-125 Mg Tablet 1 Each PO BID 5 Days Flomax (Tamsulosin HCl) 0.4 Mg Cap 0.4 Mg PO DAILY@1800 Loratadine 10 Mg Tablet 10 Mg PO DAILY Lisinopril 20 Mg Tablet 20 Mg PO HS 30 Days Hold until seen in outpatient clinic, bp normotensive at d.c Reported Benadryl (Diphenhydramine HCl) 25 Mg Capsule 25-50 Mg PO Q6H PRN Osteo Bi-Flex Tablet (Glucosamine/D3/Boswellia Anne) 1,500 Mg-400 Unit-100 Mg Tablet 1 Each PO BID Allopurinol 100 Mg Tablet 200 Mg PO HS TAKES 2 (100MG) TABS Timolol Maleate 0.5% (Timolol Maleate) 0.5 % Drops 1 Drop OU DAILY Duloxetine HCl 60 Mg Capsule.dr 60 Mg PO DAILY Atorvastatin Calcium 20 Mg Tablet 20 Mg PO HS Omeprazole 40 Mg Capsule.dr 40 Mg PO DAILY Assessment/Pt Instructions See instructions Discharge Planning: >30 minutes discharge planning Discharge Instructions Discharge Diet: Low Sodium Diet Activity as Tolerated: Yes Consultations Cardiology Discharge Physical Examination Vital Signs Vital Signs Date Time Temp Pulse Resp B/P (MAP) Pulse Ox O2 Delivery O2 Flow Rate FiO2 01/06/22 14:37 36.9 75 18 143/85 95 Nasal Cannula 2.00 General Appearance: No Apparent Distress, WD/WN Respiratory: Lungs Clear, Normal Breath Sounds, No Respiratory Distress Cardiovascular: No Edema, No Murmur, Systolic Murmur Gastrointestinal: Normal Bowel Sounds, Non Tender, Soft Extremity: Normal Inspection, No Pedal Edema Skin: Normal Color, Warm/Dry Neurologic/Psychiatric: Alert, Oriented x3, Normal Mood/Affect Allergies: Coded Allergies: codeine (Unverified Adverse Reaction, Mild, HEADACHE, 09/27/20) Copy Copies To 1: [facility] Discharge Summary Date of Admission Jan 04, 2022 at 15:21 Date of Discharge Jan 06, 2022 at 12:10 Discharge Date: Jan 05, 2022 Discharge Time: 12:10 Admission Diagnosis NSTEMI Consults/Procedures Consulations Cardiology Procedures Left heart catheterization Discharge Diagnosis (1) NSTEMI (non-ST elevated myocardial infarction) Status: Acute (2) New onset atrial fibrillation Status: Acute (3) Aortic valve sclerosis Status: Acute Clinical Quality Measures AMI/AHF: ASA po Prior to arrival: Yes (325MG) JUANA ECHOLS MD Jan 06, 2022 17:12
== END 2022-01-06 10:35 | disposition home or self-care (01) ==
LOC: EDUNIT# 12:51 → ER 12:53 → UNDOADMOB 15:21 → CSD 15:21 → UNDODISOB 01-06 10:35
PROVIDERS: ADMIT Internal Medicine; ATTEND Internal Medicine
DX: I21.A1 Myocardial infarction type 2 (principal); I48.0 Paroxysmal atrial fibrillation; I35.0 Nonrheumatic aortic (valve) stenosis; I25.10 Atherosclerotic heart disease of native coronary artery without angina pectoris; I10 Essential (primary) hypertension; E78.5 Hyperlipidemia, unspecified; K27.9 Peptic ulcer, site unspecified, unspecified as acute or chronic, without hemorrhage or perforation; M10.9 Gout, unspecified; K21.9 Gastro-esophageal reflux disease without esophagitis; K58.9 Irritable bowel syndrome, unspecified; Z79.01 Long term (current) use of anticoagulants; Z79.82 Long term (current) use of aspirin
CPT/HCPCS: 71045; 80053 ×3; 80061; 83735; 83880; 84484 ×2; 85025 ×3; 85610; 85730; 93005 ×3; 93041; 93458; 94760 ×2; 96361 ×2; 96372 ×2; 99284; C1894; C8929; G0378; 36415; 85027; 93306

== ENCOUNTER 2022-05-25 15:22 | Emergency (ER) | payer OTHER, MEDICARE ==
[~2022-05-25] VITALS: Ht 177 cm; Wt 74.8 kg
[~2022-05-25 15:22] MED LIST changes: +APIX5TAB PO; +ASPI81TA64 PO; +METO-333 PO; +METO-351 PO
[2022-05-25] MEDS ORDERED: morphine INJ 10 MG/ML 1ML (SYR OR VIAL) IVP STA ×2 (15:28→17:08)
[2022-05-25] MEDS ORDERED: ceFAZolin INJECTION 1,000 MG VIAL IV ONE (15:30)
[2022-05-25] MEDS ORDERED: TETANUS,DIPTH,PERTUSS P/F (BOOSTRIX) 0.5 ML VIAL IM ONE (15:30)
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
[2022-05-25] MEDS ORDERED: NS IV 1000 ML 1,000 ML ONE (16:32)
[2022-05-25] MEDS ORDERED: morphine PF (DURAMORPH) 10 MG/10 ML AMP IV ONE (17:00)
[2022-05-25] MEDS ORDERED: morphine INJ 10 MG/ML 1ML (SYR OR VIAL) ONE (17:01)
[2022-05-25 17:35] VITALS: BP 133/101
== END 2022-05-25 17:35 | disposition short-term general hospital (02) ==
LOC: EDUNIT# 15:22 → ER 15:26
DX: T25.222A Burn of second degree of left foot, initial encounter (principal); T31.0 Burns involving less than 10% of body surface; Z28.310 Unvaccinated for COVID-19; Z23 Encounter for immunization; X08.8XXA Exposure to other specified smoke, fire and flames, initial encounter
CPT/HCPCS: 90715

== ENCOUNTER 2022-08-14 19:12 | Observation (INO) | payer MEDICARE ==
[~2022-08-14] VITALS: Ht 177.8 cm; Wt 75.1 kg
[~2022-08-14 19:12] MED LIST changes: +TIMO5DRO16 OU; -TIMO5DRO27 OP; +TIMO5DRO39 OP; -TIMO5DRO5 OU
[2022-08-14] MEDS ORDERED: ONDANSETRON 4 MG/2 ML (SDV) Z0FRAN IVP ONE (19:30)
[2022-08-14] MEDS ORDERED: fentaNYL INJ 100 MCG/2 ML AMP IVP ONE (19:30)
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
[2022-08-14 20:01] LABS: BASOPHILS # (AUTO) 0.1 10^3/uL (0.0-0.1); BASOPHILS % (AUTO) 1 % (0-10); EOSINOPHILS # (AUTO) 0.5 10^3/uL (0.0-0.3); EOSINOPHILS % (AUTO) 4 % (0-10); HEMATOCRIT 29 % (40-54); HEMOGLOBIN 8.9 g/dL (13.3-17.7); LYMPHOCYTES # (AUTO) 1.2 10^3/uL (1.0-4.0); LYMPHOCYTES % (AUTO) 10 % (12-44); MEAN CORPUSCULAR HEMOGLOBIN 27 pg (25-34); MEAN CORPUSCULAR HGB CONC 31 g/dL (32-36); MEAN CORPUSCULAR VOLUME 88 fL (80-99); MEAN PLATELET VOLUME 8.8 fL (9.0-12.2); MONOCYTES # (AUTO) 0.9 10^3/uL (0.0-1.0); MONOCYTES % (AUTO) 7 % (0-12); NEUTROPHILS # (AUTO) 9.2 10^3/uL (1.8-7.8); NEUTROPHILS % (AUTO) 78 % (42-75); PLATELET COUNT 447 10^3/uL (130-400); WHITE BLOOD COUNT 11.9 10^3/uL (4.3-11.0)
[2022-08-14 20:16] LABS: INR 2.2 (0.8-1.4); PROTHROMBIN TIME PATIENT 23.9 SEC (12.2-14.7)
[2022-08-14 20:17] LABS: ALBUMIN 3.6 GM/DL (3.2-4.5); BILIRUBIN,TOTAL 0.3 MG/DL (0.1-1.0); CALCIUM 9.5 MG/DL (8.5-10.1); CREATININE SERUM 1.1 MG/DL (0.60-1.30); POTASSIUM 4.5 MMOL/L (3.6-5.0); TOTAL PROTEIN 7.9 GM/DL (6.4-8.2)
[2022-08-14] MEDS ORDERED: NS IV 1000 ML 1,000 ML IV STA (20:34)
[2022-08-14 20:48] LABS: BILIRUBIN,URINE NEGATIVE (NEGATIVE); CLARITY,URINE CLOUDY; COLOR,URINE YELLOW; GLUCOSE, URINE (UA) NEGATIVE (NEGATIVE); KETONES,URINE NEGATIVE (NEGATIVE); LEUKOCYTE ESTERASE ,URINE 2+ (NEGATIVE); NITRITE,URINE POSITIVE (NEGATIVE); PROTEIN,URINE 2+ (NEGATIVE)
[2022-08-14] MEDS ORDERED: HOLD METFORMIN - RECEIVED CONTRAST 20 ML VIAL IV SCH (21:00)
[2022-08-14] MEDS ORDERED: IOHEXOL 350 MG/ML 100 ML (OMNIPAQUE 350) VIAL IV ONE (21:00)
[2022-08-14] MEDS ORDERED: NS 100 ML (IVPB) BAG IV ONE (21:00)
--- NOTE | 2022-08-14 21:00 | Diagnostic Imaging Report ---
INDICATION: Syncope. COMPARISON is made with prior exam of 01/04/2022. FINDINGS: There is cardiomegaly. There is venous congestion. There is no pleural effusion or pneumothorax. The mediastinum is unremarkable. IMPRESSION: Cardiomegaly and mild central pulmonary venous congestion. Dictated by: Dictated on workstation # [id number]
[2022-08-14 21:30] LABS: BACTERIA,URINE LARGE /HPF; RBC,URINE TNTC /HPF; SQUAMOUS EPITHELIAL CELL,UR 0-2 /HPF; WBC,URINE TNTC /HPF
--- NOTE | 2022-08-14 21:35 | Diagnostic Imaging Report ---
PROCEDURE: CT abdomen and pelvis with contrast. TECHNIQUE: Multiple contiguous axial images were obtained through the abdomen and pelvis after administration of intravenous contrast. Auto Exposure Controls were utilized during the CT exam to meet ALARA standards for radiation dose reduction. All CT scans use one or more of the following dose optimizing techniques: automated exposure control, MA and/or KvP adjustment based on patient size and exam type or iterative reconstruction. INDICATION: Abdominal pain and anemia. COMPARISON is made with prior exam of 12/10/2021. FINDINGS: There is bibasilar atelectasis and/or pneumonitis. The liver is normal in size and without focal lesions. Gallbladder is contracted. No biliary ductal dilatation. Spleen is normal. The pancreas and adrenal glands are unremarkable. There are nonobstructing stones and cysts in both kidneys. The aorta is nonaneurysmal. The bowel gas pattern is nonspecific. There is no obstructive uropathy. Some questionable bladder wall thickening. There is some diverticular disease without evidence of diverticulitis. There is no pelvic mass or adenopathy. There are moderate degenerative changes in the spine. IMPRESSION: Bilateral nephrolithiasis and bilateral renal cysts without evidence of obstructive uropathy. Moderately severe degenerative changes in the spine. Diverticular disease without evidence of diverticulitis. Questionable bladder wall thickening. Recommend clinical correlation for cystitis. Dictated by: Dictated on workstation # [id number]
[2022-08-14] MEDS ORDERED: cefTRIAXone IV/IM 1,000 MG in NS (IVPB) 50 ML IV ONE (21:45)
[2022-08-14] MEDS ORDERED: ALPRAZolam 1 MG (XANAX) TAB PO PRN (23:45)
[2022-08-14] MEDS ORDERED: ANTACID SUSP 30 ML UDC (MYLANTA) PO PRN (23:45)
[2022-08-14] MEDS ORDERED: ONDANSETRON 4 MG (ZOFRAN) ORAL DISSOLVE TAB PO PRN (23:45)
[2022-08-14] MEDS ORDERED: MELATONIN 3 MG TABLET PO PRN (23:45)
[2022-08-14] MEDS ORDERED: diphenhydrAMINE 50 MG/ML INJ (BENADRYL) IVP PRN (23:45)
[2022-08-14] MEDS ORDERED: ACETAMINOPHEN 325 MG TABLET PO PRN (23:45)
[2022-08-14] MEDS ORDERED: MILK OF MAGNESIA 400 MG/5 ML 30 ML UDC PO PRN (23:45)
[2022-08-14] MEDS ORDERED: polyethylene glycoL POWDER 17 GM (MIRALAX) PACK PO PRN (23:45)
[2022-08-14] MEDS ORDERED: diphenhydrAMINE 25 MG TAB (BENADRYL) PO PRN (23:45)
[2022-08-14] MEDS ORDERED: BISACODYL 10 MG SUPP (DULCOLAX) PR PRN (23:45)
[2022-08-14] MEDS ORDERED: CALCIUM CARBONATE 500 MG (TUMS) TAB.CHEW PO PRN (23:45)
[2022-08-14] MEDS ORDERED: ONDANSETRON 4 MG/2 ML (SDV) Z0FRAN IV PRN (23:45)
[2022-08-14] MEDS ORDERED: LACTULOSE SYRUP 10GM/15ML (ENULOSE) 30ML UDC PO PRN (23:45)
[2022-08-14 23:55] VITALS: BP 114/69
[2022-08-15] VITALS: BP 113/67
[2022-08-15] LABS: RETICULOCYTE % 1.59 % (0.50-2.40)
[2022-08-15] MEDS: NS IV 1000 ML 1,000 ML IV SCH ×2 (00:01→07:59)
[2022-08-15] MEDS ORDERED: RT-ALBUTEROL SULF 2.5 MG/3 ML PRE-MIX VIAL INH PRN (00:15)
[2022-08-15 03:34] VITALS: BP 120/73
[2022-08-15 05:48] LABS: BASOPHILS % (AUTO) 0 % (0-10); EOSINOPHILS # (AUTO) 0.2 10^3/uL (0.0-0.3); EOSINOPHILS % (AUTO) 3 % (0-10); HEMATOCRIT 26 % (40-54); HEMOGLOBIN 8.1 g/dL (13.3-17.7); LYMPHOCYTES # (AUTO) 0.9 10^3/uL (1.0-4.0); LYMPHOCYTES % (AUTO) 13 % (12-44); MEAN CORPUSCULAR HEMOGLOBIN 27 pg (25-34); MEAN CORPUSCULAR HGB CONC 31 g/dL (32-36); MEAN CORPUSCULAR VOLUME 86 fL (80-99); MONOCYTES # (AUTO) 0.7 10^3/uL (0.0-1.0); MONOCYTES % (AUTO) 10 % (0-12); NEUTROPHILS # (AUTO) 5.1 10^3/uL (1.8-7.8); NEUTROPHILS % (AUTO) 73 % (42-75); PLATELET COUNT 356 10^3/uL (130-400)
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
[2022-08-15 06:09] LABS: ALBUMIN 3.1 GM/DL (3.2-4.5); BILIRUBIN,TOTAL 0.2 MG/DL (0.1-1.0); CALCIUM 8.7 MG/DL (8.5-10.1); CREATININE SERUM 0.83 MG/DL (0.60-1.30); POTASSIUM 4.3 MMOL/L (3.6-5.0); TOTAL PROTEIN 6.5 GM/DL (6.4-8.2)
[2022-08-15 08:24] VITALS: BP 117/71
[2022-08-15] MEDS: SENNOSIDES 8.6 MG (SENOKOT) TAB PO SCH ×2 (09:00→20:31)
[2022-08-15] MEDS: DOCUSATE SODIUM 100 MG (COLACE) CAP PO SCH ×2 (09:00→20:30)
[2022-08-15] MEDS: HYDROmorphone 2 MG/ML VIAL (DILAUDID) IV PRN ×3 (09:54→22:35)
[2022-08-15 11:46] VITALS: BP 110/62
[2022-08-15] MEDS ORDERED: METO50TA15 PO (12:02)
[2022-08-15] MEDS ORDERED: OXYC5TAB PO (12:02)
[2022-08-15] MEDS ORDERED: RIVA20TA PO (12:02)
[2022-08-15] MEDS ORDERED: ASPI-999 PO (12:02)
[2022-08-15] MEDS ORDERED: AMLO-250 PO (12:02)
[2022-08-15] MEDS ORDERED: LISI20TA26 PO (12:02)
[2022-08-15] MEDS ORDERED: GABA300C PO ×2 (12:02)
[2022-08-15] MEDS ORDERED: TMSL.4C PO (12:02)
[2022-08-15] MEDS ORDERED: IBUP-1773 PO (12:02)
[2022-08-15] MEDS ORDERED: NON-FORMULARY MEDICATION 1 EA EA (Diphenhydramine HCl (Benadryl) 0 MG) PO PRN (13:15)
[2022-08-15] MEDS ORDERED: MEROPENEM 1,000 MG in NS (IVPB) 100 ML IV SCH (13:15)
[2022-08-15] MEDS ORDERED: GABAPENTIN 300 MG (NEURONTIN) CAP PO PRN (13:15)
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
--- NOTE | 2022-08-15 14:49 | Physical Therapy Evaluation ---
PT Evaluation-General Medical Diagnosis Admission Date Aug 14, 2022 at 23:08 Medical Diagnosis: UTI, anemia, dizziness, syncope Onset Date: Aug 14, 2022 Therapy Diagnosis Therapy Diagnosis: Gait deficit, strength deficit Precautions Precautions/Isolations: Fall Prevention, Standard Precautions Weight Bear Status Right Lower Extremity: Right Full Weight Bearing Left Lower Extremity: Left Full Weight Bearing Referral Physician: Dr. Bella Reason for Referral: Evaluation/Treatment Medical History Reviewed History: Yes Social History Home: Single Level Current Living Status: Spouse Entry Into Home: Stairs With Railing PT Steps Into Home: 3 Prior Prior Level of Function SCALE: Activities may be completed with or without assistive devices. 2-Vlycwqumur-yqtgfbq completes the activity by him/herself with no assistance from a helper. 5-Set-up or Clean-up Assistance-helper sets up or cleans up; patient completes activity. [place] assists only prior to or following the activity. 4-Supervision or Touching Assistance-helper provides verbal cues and/or touching/steadying and/or contact guard assistance as patient completes activity. Assistance may be provided throughout the activity or intermittently. 3-Partial/Moderate Assistance-helper does LESS THAN HALF the effort. [place] lifts, holds or supports trunk or limbs, but provides less than half the effort. 2-Substantial/Maximal Assistance-helper does MORE THAN HALF the effort. [place] lifts or holds trunk or limbs and provides more than half the effort. 9-Gqxricjkg-qwwofg does ALL the effort. Patient does none of the effort to complete the activity. Or, the assistance of 2 or more helpers is required for the patient to complete the activity. If activity was not attempted, code reason: 7-Patient Refused. 9-Not Applicable-not attempted and the patient did not perform the activity before the current illness, exacerbation or injury. 10-Not Attempted due to Environmental Limitations-(lack of equipment, weather restraints, etc.). 88-Not Attempted due to Medical Conditions or Safety Concerns. 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 Reports he has been using the FWW since he has gotten ill. PT Evaluation-Current Subjective Patient lying supine in bed upon PT arrival, agreeable to treatment. Patient rates pain at 0/10 currently. Objective Patient Orientation: Person, Place, Time, Situation Attachments: Oxygen, IV ROM/Strength ROM Lower Extremities WFLs BLEs all planes. Strength Lower Extremities 3+/5 BLEs all planes Sensory Vision: Functional Hearing: Impaired Sensation Right Lower Extremit: Intact Sensation Left Lower Extremity: Intact Transfers Roll Left to Right (QC): 4 Sit to Lying (QC): 4 Lying to Sitting/Side of Bed(Q: 4 Sit to Stand (QC): 3 Chair/Ymk-mu-Hodis Xfer(QC): 3 Gait Does the Patient Walk?: Yes Mode of Locomotion: Walk Anticipated Mode of Locomotion: Walk Walk 10 feet (QC): 4 Walk 50 ft with 2 Turns(QC): 4 Walk 150 ft (QC): 4 Distance: 60' Gait Assistive Device: FWW Balance Sitting Static: Good Sitting Dynamic: Good Standing Static: Fair Standing Dynamic: Fair Assessment/Needs Patient tolerated treatment fair. Fatigues easily. Patient performs all bed mo bility and transfers with min to CGA. Patient ambulates 60 feet with FWW, with CGA and verbal cues for safety, progression, posture and conservation of energy. Patient in chair post treatment with all needs met, nursing notified, call light in reach. Rehab Potential: Fair PT Residential Goals Counter Cutter Goals PT Residential Goals Time Frame: Sep 15, 2022 Roll Left & Right (QC): 6 Sit to Lying (QC): 6 Lying-Sitting on Side/Bed(QC): 6 Sit to Stand (QC): 6 Chair/Qba-np-Vhugl Xfer(QC): 6 Toilet Transfer (QC): 6 Does the Patient Walk: Yes Walk 10 feet (QC): 6 Walk 50ft with 2 Turns (QC): 6 Walk 150 ft (QC): 6 1 Step (curb) (QC): 4 4 Steps (QC): 4 PT Plan Problem List Problem List: Activity Tolerance, Functional Strength, Safety, Balance, Gait, Transfer, Bed Mobility, ROM Treatment/Plan Treatment Plan: Continue Plan of Care Treatment Plan: Bed Mobility, Education, Functional Activity Jim, Functional Strength, Group Therapy, Gait, Safety, Therapeutic Exercise, Transfers Treatment Duration: Aug 15, 2022 Frequency: 6 times per week Estimated Hrs Per Day: .25 hour per day Safety Risks/Education Patient Education: Gait Training, Transfer Techniques Teaching Recipient: Patient Teaching Methods: Demonstration, Discussion Response to Teaching: Verbalize Understanding, Return Demonstration Time Time In: 1012 Time Out: 1027 DATE: Aug 15, 2022 Total Billed Treatment Time: 15 Total Billed Treatment Visit, PETTY CARREON PT Aug 15, 2022 14:49
[2022-08-15] MEDS: MEROPENEM 500 MG/NS 100 ML IVPB IV SCH ×4 (15:05→19:45)
[2022-08-15] MEDS ORDERED: HYPOCHLOROUS ACID/NaCl (VASHE) 250 ML IR SCH (15:30)
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
[2022-08-15 15:52] VITALS: BP 123/74
[2022-08-15] MEDS: meTOprolol TARTRATE 50 MG (LOPRESSOR) TAB PO SCH (17:12)
[2022-08-15] MEDS: ALLOPURINOL 100 MG (ZYLOPRIM) TAB PO SCH (17:13)
[2022-08-15] MEDS: TAMSULOSIN 0.4 MG (FLOMAX) CAP PO SCH (17:13)
[2022-08-15] MEDS ORDERED: PANTOPRAZOLE 40 MG (PROTONIX) TAB PO ONE (17:21)
[2022-08-15] MEDS: PANTOPRAZOLE 40 MG (PROTONIX) TAB PO SCH (17:23)
[2022-08-15] MEDS: GABAPENTIN 300 MG (NEURONTIN) CAP PO SCH (19:50)
[2022-08-15 20:11] VITALS: BP 109/63
[2022-08-15] MEDS ORDERED: cefTRIAXone IV/IM 1,000 MG in NS (IVPB) 50 ML IV SCH (21:00)
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
[2022-08-16 00:20] VITALS: BP 115/68
[2022-08-16] MEDS: MEROPENEM 500 MG/NS 100 ML IVPB IV SCH ×4 (00:54→08:44)
[2022-08-16] MEDS: HYDROmorphone 2 MG/ML VIAL (DILAUDID) IV PRN (01:49)
[2022-08-16 03:47] VITALS: BP 116/75
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
[2022-08-16 07:21] VITALS: BP 112/64
[2022-08-16 07:53] LABS: BASOPHILS % (AUTO) 1 % (0-10); EOSINOPHILS # (AUTO) 0.2 10^3/uL (0.0-0.3); EOSINOPHILS % (AUTO) 5 % (0-10); HEMATOCRIT 28 % (40-54); HEMOGLOBIN 8.4 g/dL (13.3-17.7); LYMPHOCYTES # (AUTO) 0.9 10^3/uL (1.0-4.0); LYMPHOCYTES % (AUTO) 20 % (12-44); MEAN CORPUSCULAR HEMOGLOBIN 27 pg (25-34); MEAN CORPUSCULAR HGB CONC 31 g/dL (32-36); MEAN CORPUSCULAR VOLUME 87 fL (80-99); MEAN PLATELET VOLUME 8.8 fL (9.0-12.2); MONOCYTES # (AUTO) 0.6 10^3/uL (0.0-1.0); MONOCYTES % (AUTO) 14 % (0-12); NEUTROPHILS # (AUTO) 2.7 10^3/uL (1.8-7.8); NEUTROPHILS % (AUTO) 60 % (42-75); PLATELET COUNT 289 10^3/uL (130-400); WHITE BLOOD COUNT 4.4 10^3/uL (4.3-11.0)
[2022-08-16 08:00] LABS: ALBUMIN 3.2 GM/DL (3.2-4.5); POTASSIUM 4.1 MMOL/L (3.6-5.0)
[2022-08-16 08:01] LABS: CALCIUM 9.4 MG/DL (8.5-10.1)
[2022-08-16 08:03] LABS: TOTAL PROTEIN 6.7 GM/DL (6.4-8.2)
[2022-08-16 08:04] LABS: BILIRUBIN,TOTAL 0.2 MG/DL (0.1-1.0)
[2022-08-16 08:06] LABS: CREATININE SERUM 0.85 MG/DL (0.60-1.30)
[2022-08-16] MEDS: SENNOSIDES 8.6 MG (SENOKOT) TAB PO SCH ×2 (08:45→22:49)
[2022-08-16] MEDS: GABAPENTIN 300 MG (NEURONTIN) CAP PO SCH ×2 (08:45→19:34)
[2022-08-16] MEDS: meTOprolol TARTRATE 50 MG (LOPRESSOR) TAB PO SCH ×2 (08:45→17:16)
[2022-08-16] MEDS: PANTOPRAZOLE 40 MG (PROTONIX) TAB PO SCH (08:45)
[2022-08-16] MEDS: ASPIRIN 81 MG CHEW (CHILDREN'S ASA) PO SCH (08:45)
[2022-08-16] MEDS: DOCUSATE SODIUM 100 MG (COLACE) CAP PO SCH ×2 (08:45→22:49)
[2022-08-16] MEDS: DULoxetine 30 MG (CYMBALTA) CAP PO SCH (08:45)
[2022-08-16] MEDS: amLODIPine 5 MG (NORVASC) TAB PO SCH (08:45)
[2022-08-16] MEDS: TIMOLOL MALEATE 0.5% 5 ML (TIMOPTIC) BTL OU SCH (08:46)
[2022-08-16] MEDS ORDERED: NON-FORMULARY MEDICATION 1 EA EA (Omeprazole 40 MG) PO SCH (09:00)
[2022-08-16] MEDS ORDERED: NON-FORMULARY MEDICATION 1 EA EA (Duloxetine HCl 60 MG) PO SCH (09:00)
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
[2022-08-16] MEDS ORDERED: GOLYTELY POWDER 4000 ML BTL PO ONE (10:30)
[2022-08-16 11:05] VITALS: BP 117/66
--- NOTE | 2022-08-16 11:26 | Physical Therapy Daily Note ---
PT Daily Note-Current Subjective Patient agrees to PT. Pain Section J - Health Conditions 1. Rarely or not at all 2. Occasionally 3. Frequently 4. Almost constantly 8. Unable to answer Pain Effect on Sleep: 1 Pain Interference with Therapy: 1 Pain Interference w/Day-to-Day: 1 Mental Status Patient Orientation: Normal For Age Transfers SCALE: Activities may be completed with or without assistive devices. 6-Lipxfvgbsa-ksjhaxr completes the activity by him/herself with no assistance from a helper. 5-Set-up or Clean-up Assistance-helper sets up or cleans up; patient completes activity. [place] assists only prior to or following the activity. 4-Supervision or Touching Assistance-helper provides verbal cues and/or touching/steadying and/or contact guard assistance as patient completes activity. Assistance may be provided throughout the activity or intermittently. 3-Partial/Moderate Assistance-helper does LESS THAN HALF the effort. [place] lift s, holds or supports trunk or limbs, but provides less than half the effort. 2-Substantial/Maximal Assistance-helper does MORE THAN HALF the effort. [place] lifts or holds trunk or limbs and provides more than half the effort. 6-Wsntyrxrh-mwlmpm does ALL the effort. Patient does none of the effort to complete the activity. Or, the assistance of 2 or more helpers is required for the patient to complete the activity. If activity was not attempted, code reason: 7-Patient Refused. 9-Not Applicable-not attempted and the patient did not perform the activity before the current illness, exacerbation or injury. 10-Not Attempted due to Environmental Limitations-(lack of equipment, weather restraints, etc.). 88-Not Attempted due to Medical Conditions or Safety Concerns. Lying to Sitting/Side of Bed(Q: 6 Sit to Stand (QC): 6 Chair/Slm-pn-Sgyat Xfer(QC): 6 Weight Bearing Right Lower Extremity: Right Full Weight Bearing Left Lower Extremity: Left Full Weight Bearing Gait Training Distance: 275' Walk 10 feet (QC): 6 Walk 50 ft with 2 Turns(QC): 6 Walk 150 ft (QC): 6 Gait Assistive Device: FWW safe and functional with no deviation Assessment Patient is currently at independent OF with all gross motor skills safely and no longer requires skilled PT intervention at this time. Patient instructed to be up in room ad dottie. RN notified. PT Ad Terminal Makeup Operator Goals Snf Goals PT Ad Terminal Makeup Operator Goals Time Frame: Sep 15, 2022 Roll Left & Right (QC): 6 Sit to Lying (QC): 6 Lying-Sitting on Side/Bed(QC): 6 Sit to Stand (QC): 6 Chair/Lzg-gk-Lazaz Xfer(QC): 6 Toilet Transfer (QC): 6 Does the Patient Walk: Yes Walk 10 feet (QC): 6 Walk 50ft with 2 Turns (QC): 6 Walk 150 ft (QC): 6 1 Step (curb) (QC): 4 4 Steps (QC): 4 PT Plan Treatment/Plan Treatment Plan: Discontinue PT Treatment Plan: Bed Mobility, Education, Functional Activity Jim, Functional Strength, Group Therapy, Gait, Safety, Therapeutic Exercise, Transfers Treatment Duration: Aug 15, 2022 Frequency: 6 times per week Estimated Hrs Per Day: .25 hour per day Time Time In: 1040 Time Out: 1050 DATE: Aug 16, 2022 Total Billed Treatment Time: 10 Total Billed Treatment 1 visit FA 10 min GLENNY NOLAN PT Aug 16, 2022 11:26
--- NOTE | 2022-08-16 15:44 | Occupational Ther Daily Note ---
OT Current Status-Daily Note Subjective RECENT WOUND CHANGE, AGREEABLE TO OT INSTRUCTION OF DRESSING TOOLS Mental Status/Objective Patient Orientation: Person, Place, Time, Situation ADL-Treatment Therapy Code Descriptions/Definitions Functional [place] Measure: 0=Not Assessed/NA 4=Minimal Assistance 1=Total Assistance 5=Supervision or Setup 2=Maximal Assistance 6=Modified [place] 3=Moderate Assistance 7=Complete IndependenceSCALE: Activities may be completed with or without assistive devices. 4-Vprejfvbny-kgjwfla completes the activity by him/herself with no assistance fr om a helper. 5-Set-up or Clean-up Assistance-helper sets up or cleans up; patient completes activity. [place] assists only prior to or following the activity. 4-Supervision or Touching Assistance-helper provides verbal cues and/or touching/steadying and/or contact guard assistance as patient completes activity. Assistance may be provided throughout the activity or intermittently. 3-Partial/Moderate Assistance-helper does LESS THAN HALF the effort. [place] lifts, holds or supports trunk or limbs, but provides less than half the effort. 2-Substantial/Maximal Assistance-helper does MORE THAN HALF the effort. [place] lifts or holds trunk or limbs and provides more than half the effort. 9-Ykqbeteko-srqvpa does ALL the effort. Patient does none of the effort to complete the activity. Or, the assistance of 2 or more helpers is required for the patient to complete the activity. If activity was not attempted, code reason: 7-Patient Refused. 9-Not Applicable-not attempted and the patient did not perform the activity before the current illness, exacerbation or injury. 10-Not Attempted due to Environmental Limitations-(lack of equipment, weather restraints, etc.). 88-Not Attempted due to Medical Conditions or Safety Concerns. Lower Body Dressing (QC): 5 (W/ TOOLS) Education OT Patient Education: Correct positioning, Modified ADL techniques, Progress toward Goal/Update tx plan, Purpose of tx/functional activities, Reviewed precautions, Rehab process, Safety issues, Use of adapted equipment Teaching Recipient: Patient Teaching Methods: Demonstration, Discussion Response to Teaching: Return Demonstration OT Detention Goals Javascript Ui Developer Goals Eating (QC): 6 Oral Hygiene (QC): 6 Toileting Hygiene (QC): 6 Shower/Bathe Self (QC): 6 Upper Body Dressing (QC): 6 Lower Body Dressing (QC): 6 On/Off Footwear (QC): 6 1=Demonstrate adherence to instructed precautions during ADL tasks. 2=Patient will verbalize/demonstrate understanding of assistive devices/modifications for ADL. 3=Patient will improve strength/tolerance for activity to enable patient to perform ADL's. OT Education/Plan Problem List/Assessment Assessment: No Skilled OT Needs ID'd Discharge Recommendations Plan/Recommendations: Discharge/Goals Met Treatment Plan/Plan of Care Patient would benefit from OT for education, treatment and training to promote independence in ADL's, mobility, safety and/or upper extremity function for ADL's. Plan of Care: ADL Retraining, Functional Mobility, Group Exercise/Act as Ind, UE Funct Exercise/Act, UE Neuromus Re-Ed/Coord Treatment Duration: Aug 18, 2022 Frequency: 3 times per week (3-5 times per week) Estimated Hrs Per Day: .25 hour per day Rehab Potential: Good Time Start Time: 11:50 Stop Time: 12:05 DATE: Aug 16, 2022 Total Time Billed (hr/min): 15 Billed Treatment Time adl 15 MIN GAYE HORNER OT Aug 16, 2022 15:43
[2022-08-16 16:16] VITALS: BP 122/63
[2022-08-16] MEDS: TAMSULOSIN 0.4 MG (FLOMAX) CAP PO SCH (17:16)
[2022-08-16] MEDS: ALLOPURINOL 100 MG (ZYLOPRIM) TAB PO SCH (17:16)
[2022-08-16] MEDS: CEPHALEXIN 250 MG (KEFLEX) CAP PO SCH (19:34)
[2022-08-16 20:03] VITALS: BP 114/62
[2022-08-16] MEDS ORDERED: IRON SUCROSE 200 MG/10 ML (VENOFER) VIAL IV ONE (21:45)
[2022-08-17] VITALS (9 sets, daily range): BP systolic 89–131; BP diastolic 56–77
[2022-08-17 05:50] LABS: ALBUMIN 3.5 GM/DL (3.2-4.5); POTASSIUM 4.5 MMOL/L (3.6-5.0)
[2022-08-17 05:51] LABS: CALCIUM 9.9 MG/DL (8.5-10.1)
[2022-08-17 05:53] LABS: TOTAL PROTEIN 7.7 GM/DL (6.4-8.2)
[2022-08-17 05:54] LABS: BILIRUBIN,TOTAL 0.3 MG/DL (0.1-1.0)
[2022-08-17 05:56] LABS: CREATININE SERUM 0.81 MG/DL (0.60-1.30)
[2022-08-17 06:33] LABS: BASOPHILS % (AUTO) 1 % (0-10); EOSINOPHILS # (AUTO) 0.1 10^3/uL (0.0-0.3); EOSINOPHILS % (AUTO) 4 % (0-10); HEMATOCRIT 27 % (40-54); HEMOGLOBIN 8.8 g/dL (13.3-17.7); LYMPHOCYTES # (AUTO) 0.9 10^3/uL (1.0-4.0); LYMPHOCYTES % (AUTO) 22 % (12-44); MEAN CORPUSCULAR HEMOGLOBIN 27 pg (25-34); MEAN CORPUSCULAR HGB CONC 32 g/dL (32-36); MEAN CORPUSCULAR VOLUME 84 fL (80-99); MEAN PLATELET VOLUME 8.6 fL (9.0-12.2); MONOCYTES # (AUTO) 0.5 10^3/uL (0.0-1.0); MONOCYTES % (AUTO) 12 % (0-12); NEUTROPHILS # (AUTO) 2.5 10^3/uL (1.8-7.8); NEUTROPHILS % (AUTO) 63 % (42-75); PLATELET COUNT 327 10^3/uL (130-400); WHITE BLOOD COUNT 4.1 10^3/uL (4.3-11.0)
[2022-08-17] MEDS: DULoxetine 30 MG (CYMBALTA) CAP PO SCH (09:00)
[2022-08-17] MEDS: TIMOLOL MALEATE 0.5% 5 ML (TIMOPTIC) BTL OU SCH (09:00)
[2022-08-17] MEDS: GABAPENTIN 300 MG (NEURONTIN) CAP PO SCH ×2 (09:00→20:09)
[2022-08-17] MEDS: CEPHALEXIN 250 MG (KEFLEX) CAP PO SCH ×3 (09:00→20:08)
[2022-08-17] MEDS: PANTOPRAZOLE 40 MG (PROTONIX) TAB PO SCH (09:00)
[2022-08-17] MEDS: amLODIPine 5 MG (NORVASC) TAB PO SCH (09:00)
[2022-08-17] MEDS: DOCUSATE SODIUM 100 MG (COLACE) CAP PO SCH ×2 (09:00→20:09)
[2022-08-17] MEDS: ASPIRIN 81 MG CHEW (CHILDREN'S ASA) PO SCH (09:00)
[2022-08-17] MEDS: SENNOSIDES 8.6 MG (SENOKOT) TAB PO SCH ×2 (09:00→20:09)
[2022-08-17] MEDS ORDERED: CEPH250C PO (11:37)
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
[2022-08-17] MEDS ORDERED: IRON SUCROSE 200 MG/10 ML (VENOFER) VIAL IV NR (12:00)
[2022-08-17] MEDS ORDERED: PROPOFOL INJECTION 50 ML IV ONE (14:31)
[2022-08-17] MEDS ORDERED: MIDAZOLAM 2 MG/2 ML (VERSED) VIAL ONE (14:32)
[2022-08-17] MEDS ORDERED: LACTATED RINGERS 1,000 ML IV STA (14:37)
[2022-08-17] MEDS ORDERED: HURRICAINE EXT TUBE (BENZOCAINE) XX PRN (14:45)
--- NOTE | 2022-08-17 15:10 | Anesthesia-General Post-Op ---
MAC Patient Condition Mental Status/LOC: Same as Preop Cardiovascular: Satisfactory Nausea/Vomiting: Absent Respiratory: Satisfactory Pain: Controlled Complications: Absent Post Op Complications Complications None Follow Up Care/Instructions Patient Instructions None needed. Anesthesiology Discharge Order Discharge Order Patient is doing well, no complaints, stable vital signs, no apparent adverse anesthesia problems. No complications reported per nursing. GEORGE DAMICO CRNA Aug 17, 2022 15:10
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
--- NOTE | 2022-08-17 15:13 | Progress Note-Post Operative ---
Post-Operative Progess Note Surgeon (s)/Asset Protection Detective (s) Surgeon JEANA TOPETE DO Asset Protection Detective: na Pre-Operative Diagnosis anemia Post-Operative Diagnosis small hiatal hernia, diverticulosis Procedure & Operative Findings Date of Procedure 08/17/22 Procedure Performed/Findings egd, colonoscopy Anesthesia Type per mica paster Estimated Blood Loss Estimated blood loss (mL): none Specimens/Packing Specimens Removed none JEANA TOPETE DO Aug 17, 2022 15:13
[2022-08-17] MEDS: meTOprolol TARTRATE 50 MG (LOPRESSOR) TAB PO SCH ×2 (15:50→17:37)
[2022-08-17] MEDS: ALLOPURINOL 100 MG (ZYLOPRIM) TAB PO SCH (17:37)
[2022-08-17] MEDS: TAMSULOSIN 0.4 MG (FLOMAX) CAP PO SCH (17:37)
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
[2022-08-18 03:19] VITALS: BP 118/66
--- NOTE | 2022-08-18 04:46 | OPERATIVE REPORT ---
DATE OF SERVICE: 08/17/2022 PREOPERATIVE DIAGNOSIS: Anemia. POSTOPERATIVE DIAGNOSES: Small hiatal hernia, diverticulosis. PROCEDURE: EGD and colonoscopy. SURGEON: Jeana Massey DO ANESTHESIA: Per DIRECTOR FINANCIAL PLANNING. ESTIMATED BLOOD LOSS: None. COMPLICATIONS: None. INDICATIONS: The patient is a 57-year-old male who was admitted and found to be anemic. He understands risks and benefits of procedure and wished to proceed. Consent was signed in chart. DESCRIPTION OF PROCEDURE: The patient was taken to endoscopy suite, placed in left lateral recumbent position. Timeout was performed. Scope was inserted in the mouth, down the esophagus, stomach, into the duodenum without difficulty. There were no polyps, masses or ulcerations in the duodenum. Scope was then slowly retracted back into the stomach where it was further insufflated. No polyps, mass, or ulcerations in the stomach. Scope was retroflexed noting a small hiatal hernia, no other pathology. Scope was returned to its normal position, slowly withdrawn until distal esophagus. No polyps, masses or ulcerations. Scope was slowly retracted back until completely removed, noting no other pathology. Digital rectal exam was performed. No palpable polyps, masses or ulcerations. Scope was inserted in the rectum, advanced all the way to the cecum with minimal difficulty. Prep was adequate. Scope was then slowly retracted back. No polyps, masses or ulcerations in the cecum, ascending, transverse, descending and sigmoid colon. Throughout the left colon, moderate amount diverticulosis present. Once in the rectum, scope was retroflexed noting no other pathology. Scope was returned to its normal position, slowly withdrawn until completely removed. The patient tolerated the procedure well without complications, taken to recovery room in stable condition. No source of bleeding found. RECOMMENDATIONS: If continues to be anemic, would consider a small bowel capsule endoscopy. He will need repeat colonoscopy in 10 years unless family history of colon cancer, which will be 5 years with diverticulosis, recommend high fiber diet. Job ID: [id number] DocumentID: [id number] Dictated Date: 08/17/2022 18:36:23 Mechanical Reliability Engineer Date: 08/18/2022 04:45:00 Dictated By: JEANA MASSEY DO
[2022-08-18 06:07] LABS: BASOPHILS % (AUTO) 1 % (0-10); EOSINOPHILS # (AUTO) 0.2 10^3/uL (0.0-0.3); EOSINOPHILS % (AUTO) 5 % (0-10); HEMATOCRIT 26 % (40-54); HEMOGLOBIN 8.2 g/dL (13.3-17.7); LYMPHOCYTES % (AUTO) 23 % (12-44); MEAN CORPUSCULAR HEMOGLOBIN 27 pg (25-34); MEAN CORPUSCULAR HGB CONC 31 g/dL (32-36); MEAN CORPUSCULAR VOLUME 86 fL (80-99); MEAN PLATELET VOLUME 8.9 fL (9.0-12.2); MONOCYTES # (AUTO) 0.5 10^3/uL (0.0-1.0); MONOCYTES % (AUTO) 12 % (0-12); NEUTROPHILS # (AUTO) 2.6 10^3/uL (1.8-7.8); NEUTROPHILS % (AUTO) 60 % (42-75); PLATELET COUNT 335 10^3/uL (130-400); WHITE BLOOD COUNT 4.4 10^3/uL (4.3-11.0)
[2022-08-18 06:17] LABS: ALBUMIN 3.2 GM/DL (3.2-4.5); POTASSIUM 3.7 MMOL/L (3.6-5.0)
[2022-08-18 06:18] LABS: CALCIUM 9.2 MG/DL (8.5-10.1)
[2022-08-18 06:19] LABS: TOTAL PROTEIN 6.8 GM/DL (6.4-8.2)
[2022-08-18 06:21] LABS: BILIRUBIN,TOTAL 0.3 MG/DL (0.1-1.0)
[2022-08-18 06:23] LABS: CREATININE SERUM 0.8 MG/DL (0.60-1.30)
[2022-08-18 07:20] VITALS: BP 111/62
[2022-08-18] MEDS: ASPIRIN 81 MG CHEW (CHILDREN'S ASA) PO SCH (08:03)
[2022-08-18] MEDS: CEPHALEXIN 250 MG (KEFLEX) CAP PO SCH (08:03)
[2022-08-18] MEDS: meTOprolol TARTRATE 50 MG (LOPRESSOR) TAB PO SCH (08:03)
[2022-08-18] MEDS: DOCUSATE SODIUM 100 MG (COLACE) CAP PO SCH (08:04)
[2022-08-18] MEDS: PANTOPRAZOLE 40 MG (PROTONIX) TAB PO SCH (08:04)
[2022-08-18] MEDS: DULoxetine 30 MG (CYMBALTA) CAP PO SCH (08:04)
[2022-08-18] MEDS: amLODIPine 5 MG (NORVASC) TAB PO SCH (08:04)
[2022-08-18] MEDS: GABAPENTIN 300 MG (NEURONTIN) CAP PO SCH (08:04)
[2022-08-18] MEDS: TIMOLOL MALEATE 0.5% 5 ML (TIMOPTIC) BTL OU SCH (08:05)
[2022-08-18] MEDS: SENNOSIDES 8.6 MG (SENOKOT) TAB PO SCH (08:06)
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
[2022-08-18 11:33] VITALS: BP 111/61
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
[2022-08-18 12:55] VITALS: BP 111/61
== END 2022-08-18 12:55 | disposition home health service (06) ==
LOC: EDUNIT# 19:12 → ER 19:13 → 4TH 23:08
PROVIDERS: ADMIT Internal Medicine; ATTEND Internal Medicine
DX: K44.9 Diaphragmatic hernia without obstruction or gangrene (principal); K57.30 Diverticulosis of large intestine without perforation or abscess without bleeding; T24.002A Burn of unspecified degree of unspecified site of left lower limb, except ankle and foot, initial encounter; R55 Syncope and collapse; N30.01 Acute cystitis with hematuria; D64.9 Anemia, unspecified; I10 Essential (primary) hypertension; E78.5 Hyperlipidemia, unspecified; Z28.310 Unvaccinated for COVID-19
CPT/HCPCS: 43235; 45378; 71045; 74177; 80053 ×5; 81000; 82274; 82550; 82607; 82728; 83540; 83550; 85025 ×5; 85045; 85610; 85730; 87077; 87081; 87088; 87186; 93005; 94760; 96361 ×2; 96365; 96366; 96375 ×3; 96376 ×3; 97162; 97166; 97530; 97535 ×2; 99284; G0378; 36415

== ENCOUNTER → 2022-10-04 | Outpatient (CLI) | payer MEDICARE ==
[~2022-10-04] MED LIST changes: +ASPI-999 PO; +CEPH250C PO; +GABA300C PO; +IBUP-1773 PO; +METO50TA15 PO; +OXYC5TAB PO; +RIVA20TA PO
== END ==
LOC: WOUNDCARE 08:39
PROVIDERS: ATTEND Family Medicine
DX: I96 Gangrene, not elsewhere classified (principal); L97.312 Non-pressure chronic ulcer of right ankle with fat layer exposed; T86.828 Other complications of skin graft (allograft) (autograft); L92.8 Other granulomatous disorders of the skin and subcutaneous tissue; T24.332A Burn of third degree of left lower leg, initial encounter; D46.4 Refractory anemia, unspecified; Z79.01 Long term (current) use of anticoagulants
CPT/HCPCS: 11042; 87070; 87077; 87205; A6197; G0463; 87186

== ENCOUNTER → 2022-10-11 | Outpatient (CLI) | payer MEDICARE | LOC: WOUNDCARE 08:10 | PROVIDERS: ATTEND Family Medicine | DX: L97.312 Non-pressure chronic ulcer of right ankle with fat layer exposed (principal); T86.828 Other complications of skin graft (allograft) (autograft); L92.8 Other granulomatous disorders of the skin and subcutaneous tissue; T24.332A Burn of third degree of left lower leg, initial encounter; D46.4 Refractory anemia, unspecified; I89.0 Lymphedema, not elsewhere classified; Z79.01 Long term (current) use of anticoagulants | CPT/HCPCS: 11042; A6209; G0463 ==

== ENCOUNTER → 2022-10-15 | Outpatient (CLI) | payer MEDICARE | LOC: WOUNDCARE 08:13 | PROVIDERS: ATTEND Family Medicine | DX: S86.092A Other specified injury of left Achilles tendon, initial encounter (principal); I10 Essential (primary) hypertension; H40.9 Unspecified glaucoma; X58.XXXA Exposure to other specified factors, initial encounter | CPT/HCPCS: 29581; A6209; G0463 ==

== ENCOUNTER → 2022-10-18 | Outpatient (CLI) | payer MEDICARE | LOC: WOUNDCARE 08:10 | PROVIDERS: ATTEND Family Medicine | DX: T24.332A Burn of third degree of left lower leg, initial encounter (principal); L97.312 Non-pressure chronic ulcer of right ankle with fat layer exposed; T86.828 Other complications of skin graft (allograft) (autograft); L92.8 Other granulomatous disorders of the skin and subcutaneous tissue; D46.4 Refractory anemia, unspecified; Z79.01 Long term (current) use of anticoagulants; I89.0 Lymphedema, not elsewhere classified; B96.29 Other Escherichia coli [E. coli] as the cause of diseases classified elsewhere | CPT/HCPCS: 11042; A6209; G0463; L4360 ==

== ENCOUNTER → 2022-10-25 | Outpatient (CLI) | payer MEDICARE | LOC: WOUNDCARE 08:10 | PROVIDERS: ATTEND Family Medicine | DX: T24.332A Burn of third degree of left lower leg, initial encounter (principal); L97.312 Non-pressure chronic ulcer of right ankle with fat layer exposed; T86.828 Other complications of skin graft (allograft) (autograft); L92.8 Other granulomatous disorders of the skin and subcutaneous tissue; D46.4 Refractory anemia, unspecified; I89.0 Lymphedema, not elsewhere classified; Z79.01 Long term (current) use of anticoagulants | CPT/HCPCS: 11042; A6209; G0463 ==

== ENCOUNTER → 2022-11-01 | Outpatient (CLI) | payer MEDICARE | LOC: WOUNDCARE 08:14 | PROVIDERS: ATTEND Family Medicine | DX: L97.312 Non-pressure chronic ulcer of right ankle with fat layer exposed (principal); T86.828 Other complications of skin graft (allograft) (autograft); L92.9 Granulomatous disorder of the skin and subcutaneous tissue, unspecified; T24.332A Burn of third degree of left lower leg, initial encounter; D46.4 Refractory anemia, unspecified; I89.0 Lymphedema, not elsewhere classified; Z79.01 Long term (current) use of anticoagulants | CPT/HCPCS: 17250; A6209; G0463 ==

== ENCOUNTER → 2022-11-08 | Outpatient (CLI) | payer MEDICARE | LOC: WOUNDCARE 08:09 | PROVIDERS: ATTEND Family Medicine | DX: L97.312 Non-pressure chronic ulcer of right ankle with fat layer exposed (principal); T86.828 Other complications of skin graft (allograft) (autograft); L92.8 Other granulomatous disorders of the skin and subcutaneous tissue; T24.332A Burn of third degree of left lower leg, initial encounter; D46.4 Refractory anemia, unspecified; Z79.01 Long term (current) use of anticoagulants; I89.0 Lymphedema, not elsewhere classified | CPT/HCPCS: 29581; A6209; G0463 ==

== ENCOUNTER → 2022-11-15 | Outpatient (CLI) | payer MEDICARE | LOC: WOUNDCARE 08:21 | PROVIDERS: ATTEND Family Medicine | DX: L97.312 Non-pressure chronic ulcer of right ankle with fat layer exposed (principal); T24.332A Burn of third degree of left lower leg, initial encounter; T86.828 Other complications of skin graft (allograft) (autograft); L92.8 Other granulomatous disorders of the skin and subcutaneous tissue; D46.4 Refractory anemia, unspecified; I89.0 Lymphedema, not elsewhere classified; Z79.01 Long term (current) use of anticoagulants | CPT/HCPCS: 99212 ==